=== PATIENT | male | born 1975 | race African-American/Black ===

== ENCOUNTER 2020-03-18 09:47 | Emergency (ER) | payer OTHER ==
--- OUTSIDE RECORDS SUMMARY | 2020-03-18 09:50 | XMS REPORT | Continuity of Care Document ---
:1975 Author Organization [facility] t Address [address] [place] [address] Care Team Providers Name Role Phone Unavailable Unavailable Unavailable Payers Payer Name Policy Type Policy Number Effective Date Expiration Date S ource Problems This patient has no known problems. Allergies, Adverse Reactions, Alerts Allergy Allergy Status Severity Reaction(s) Onset Inactive Treating Comm ents Source Name Type Date Date Clinician No Known DA [facility] Medications This patient has no known medications. Procedures This patient has no known procedures. Results Test Description Test Time Test Comments Results Result Comments Source SURG 2019-03-14 15:41:00 --------RUN DATE: 03/14/19 [facility] - LAB *LIVE* PAGE 1 RUN TIME: 1541 Specimen Inquiry RUN USER: INTERFACE --------PATIENT: ARNALDO CLEMENTS LOC: [place] U #: [id number] AGE/SX: 44/M ROOM: RE03/11/19[facility] DR: Lane Bob MD : 75 BED: DIS: STATUS: [facility] TLOC: -------- SPEC #: [id number] RECD: 03/11/19 STATUS: SOULinnea RE #: [id number] TRU: 03/11/[address] [facility] [address]: Lane Bob MD ENTERED: 03/11/19 SP TYPE: SURG OTHR DR: DOES_NOT KNOW ORDERED: SURG PATH LVL 2 COPIES TO: DOES_[place] [id number] [facility] [address] [place] [address] [email or web address] HISTOLOGY: TISSUE ID BLK PCS MARY LEV PROCEDURE DISPOSITION ____ ___ ___ ___ TESTIS, NOS A 1 1 PROCEDURES: SURG PATH LVL 2 (03/14/19-1223) TISSUES: A. TESTIS, NOS - LEFT HYDROCELE SAC CLINICAL HISTORY HYDROCELE -N43.3 CPT CODES CPT CODE(S): 32870 , , , , , , FINAL DIAGNOSIS Left hydrocele sac, hydrocelectomy: FINDINGS CONSISTENT WITH HYDROCELE GROSS DESCRIPTION Left hydrocele sac. Received in formalin is an irregular fragment of martinez-pink soft tissue, 9.0 x 5.8 x 0.5 cm. The surface, at one side, is glistening with attached red-brown membranous tissue. The specimen is serially sectioned and reveals dense martinez-pink fibrous tissue. No gross lesion is identified. Packaging Engineer sections submitted as A1 and A2. ba/nr Grossing performed at [facility] Pathology, [address] [place] [address], [address], [place], [place] [address]. Last Sorter: Fer Ohara M.D. CONTINUED ON NEXT PAGE --------RUN DATE: 03/14/19 [facility] - LAB *LIVE* PAGE 2 RUN TIME: 1541 Specimen Inquiry RUN USER: INTERFACE --------SPEC #: [facility]:[id number] PATIENT: ARNALDO CLEMENTS #[id number] (Continued) MICROSCOPIC DESCRIPTION Left hydrocele sac. Sections show a cystic structure with no epithelial lining. There is no evidence of atypia identified. No spermatozoa are present. No evidence of malignancy. /c Signed SIGNATURE ON FILE Johnie Saeedart 03/14/19 1541 -------- END OF REPORT
[2020-03-18] MEDS ORDERED: KETOROLAC 30 MG/ML INJ ONE (11:02)
--- NOTE | 2020-03-18 11:29 | ER ---
Nurse's Notes [facility] Name: Felix Pompa Age: 45 yrs Sex: Male : 1975 Arrival Date: 03/18/2020 Time: 09:49 Bed 18 Private MD: Diagnosis: Strain of muscle, fascia and tendon of lower back Presentation: 03/18 10:07 Chief complaint: Patient states: Attempting to lift a pallet on Thursday and felt a pop jl7 in the low back. Reports left low back pain, denies incontinence. Coronavirus screen: Proceed with normal triage. Ebola Screen: No symptoms or risks identified at this time. Initial Sepsis Screen: Does the patient meet any 2 criteria? No. Patient's initial sepsis screen is negative. Does the patient have a suspected source of infection? No. Patient's initial sepsis screen is negative. Risk Assessment: Do you want to hurt yourself or someone else? Patient reports no desire to harm self or others. Onset of symptoms was March 13, 2020. Care prior to arrival: None. 10:07 Method Of Arrival: Ambulatory jl7 10:07 Acuity: CHRISTOPHER 4 jl7 Triage Assessment: 10:12 General: Appears in no apparent distress. uncomfortable, Behavior is calm, cooperative, jl7 appropriate for age. Pain: Complains of pain in left low back Pain currently is 10 out of 10 on a pain scale. Pain began x 5 days Is continuous. Neuro: Level of Consciousness is awake, alert, obeys commands, Oriented to person, place, time, situation, Gait is steady. Cardiovascular: Patient's skin is warm and dry. Respiratory: Airway is patent Respiratory effort is even, unlabored, Respiratory pattern is regular, symmetrical. Derm: Skin is pink, warm \T\ dry. Musculoskeletal: Swelling absent. Historical: - Allergies: 10:12 uknown medication, possibly an antibiotic; jl7 - Home Meds: 10:12 uknown htn medication [Active]; jl7 - PMHx: 10:12 Hypertension; jl7 - PSHx: 10:12 Appendectomy; jl7 - Immunization history:: Adult Immunizations not up to date. - Social history:: Smoking status: Patient denies any tobacco usage or history of. - Family history:: not pertinent. - Hospitalizations: : No recent hospitalization is reported. Screenin:07 Abuse screen: Denies threats or abuse. Denies injuries from another. Nutritional jl7 screening: No deficits noted. Tuberculosis screening: No symptoms or risk factors identified. Fall Risk Gait- Impaired (20 pts.). Total Valero Fall Scale indicates No Risk (0-24 pts). Assessment: 10:15 General: See triage assessment. jl7 11:15 Reassessment: Patient appears in no apparent distress at this time. No changes from jl7 previously documented assessment. Patient and/or family updated on plan of care and expected duration. Pain level reassessed. Patient is alert, oriented x 3, equal unlabored respirations, skin warm/dry/pink. 11:36 Reassessment: reports pain 5/10 at this time Patient states feeling better. jl7 Vital Signs: 10:07 BP 164 / 99; Pulse 77; Resp 19; Temp 97.3; Pulse Ox 100% ; Weight 72.57 kg; Height 5 jl7 ft. 5 in. (165.10 cm); Pain 10/10; 11:07 BP 127 / 85; Pulse 70; Resp 15; Pulse Ox 98% ; jl7 10:07 Body Mass Index 26.63 (72.57 kg, 165.10 cm) jl7 ED Course: 09:49 Patient arrived in ED. ag5 10:01 Huang Merritt MD is Attending Physician. rn 10:07 Safia De La O, ALICE is Primary Nurse. jl7 10:10 Triage completed. jl7 10:12 Arm band placed on right wrist. jl7 10:52 XRAY Lumbar Spine (3 Views) In Process Unspecified. EDMS 11:07 Patient has correct armband on for positive identification. Bed in low position. Call jl7 light in reach. Side rails up X 1. Pulse ox on. NIBP on. 11:36 No provider procedures requiring assistance completed. Patient did not have IV access jl7 during this emergency room visit. Administered Medications: 11:06 Drug: TORadol 30 mg Route: IM; Site: right deltoid; jl7 11:36 Follow up: Response: No adverse reaction; Pain is decreased jl7 Outcome: 11:28 Discharge ordered by . rn 11:36 Discharged to home ambulatory. jl7 11:36 Condition: stable 11:36 Discharge instructions given to patient, Instructed on discharge instructions, follow up and referral plans. medication usage, Demonstrated understanding of instructions, follow-up care, medications, Prescriptions given X 2. 11:37 Patient left the ED. jl7 Signatures: Dispatcher [employer] EDHuang Mejia MD MD rn Leal, Jahala, RN RN jl7 Yifan Noriega ag5 Corrections: (The following items were deleted from the chart) 11:37 11:36 Discharge instructions given to patient, Instructed on discharge instructions, jl7 follow up and referral plans. medication usage, Demonstrated understanding of instructions, follow-up care, medications, Prescriptions given X 1, jl7
--- NOTE | 2020-03-18 11:29 | EDPHYS ---
Physician Documentation [facility] Name: Felix Pompa Age: 45 yrs Sex: Male : 1975 Arrival Date: 03/18/2020 Time: 09:49 Bed 18 Private MD: ED Physician Huang Merritt HPI: 03/18 10:07 This 45 yrs old Black Male presents to ER via Unassigned with complaints of Back Pain. rn 10:07 The patient presents with pain that is acute. The symptoms are located in the low back. rn Onset: The symptoms/episode began/occurred 5 day(s) ago. The pain does not radiate. Associated signs and symptoms: Pertinent positives: none Pertinent negatives: abdominal pain, chest pain, constipation, dysuria, fever, hematuria, incontinence, nausea, numbness, tingling, urinary retention, vomiting, weakness. Modifying factors: The patient symptoms are alleviated by remaining still, rest, the patient symptoms are aggravated by any movement. Severity of symptoms: At their worst the symptoms were mild, in the emergency department the symptoms are unchanged. The patient has experienced similar episodes in the past. Reports low back pain, left sided, after lifting empty pallet 5 days ago, no focal neurological symptoms, no fever, no direct trauma. No bowel/bladder issues. . Historical: - Allergies: 10:12 uknown medication, possibly an antibiotic; jl7 - Home Meds: 10:12 uknown htn medication [Active]; jl7 - PMHx: 10:12 Hypertension; jl7 - PSHx: 10:12 Appendectomy; jl7 - Immunization history:: Adult Immunizations not up to date. - Social history:: Smoking status: Patient denies any tobacco usage or history of. - Family history:: not pertinent. - Hospitalizations: : No recent hospitalization is reported. ROS: 10:07 Constitutional: Negative for fever, chills, and weight loss, Eyes: Negative for injury, rn pain, redness, and discharge, Cardiovascular: Negative for chest pain, palpitations, and edema, Respiratory: Negative for shortness of breath, cough, wheezing, and pleuritic chest pain, Abdomen/GI: Negative for abdominal pain, nausea, vomiting, diarrhea, and constipation, Back: + for injury and low back pain : Negative for injury, bleeding, discharge, and swelling, MS/Extremity: Negative for injury and deformity, Skin: Negative for injury, rash, and discoloration, Neuro: Negative for headache, weakness, numbness, tingling, and seizure. Exam: 10:07 Constitutional: This is a well developed, well nourished patient who is awake, alert, rn and in no acute distress. Back: No spinal tenderness. + left perispinal muscular tenderness Skin: Warm, dry with normal turgor. Normal color with no rashes, no lesions, and no evidence of cellulitis. MS/ Extremity: Pulses equal, no cyanosis. Neurovascular intact. Full, normal range of motion. Equal circumference. Neuro: Awake and alert, GCS 15, oriented to person, place, time, and situation. Cranial nerves II-XII grossly intact. Motor strength 5/5 in all extremities. Sensory grossly intact. Cerebellar exam normal. Normal gait. Vital Signs: 10:07 BP 164 / 99; Pulse 77; Resp 19; Temp 97.3; Pulse Ox 100% ; Weight 72.57 kg; Height 5 jl7 ft. 5 in. (165.10 cm); Pain 10; 11:07 BP 127 / 85; Pulse 70; Resp 15; Pulse Ox 98% ; jl7 10:07 Body Mass Index 26.63 (72.57 kg, 165.10 cm) jl7 MDM: 10:01 Patient medically screened. rn 11:27 Differential diagnosis: arthritis, chronic back pain, sprain, muscle strain. Data rn reviewed: vital signs, nurses notes, radiologic studies, plain films, and as a result, I will discharge patient. Test interpretation: by ED physician or midlevel provider: plain radiologic studies, Xray lumbar spine neg for acute fracture or pathology.. Counseling: I had a detailed discussion with the patient and/or guardian regarding: the historical points, exam findings, and any diagnostic results supporting the discharge/admit diagnosis, radiology results, the need for outpatient follow up, to return to the emergency department if symptoms worsen or persist or if there are any questions or concerns that arise at home. Response to treatment: the patient's symptoms have mildly improved after treatment, and as a result, I will discharge patient. Special discussion: I discussed with the patient/guardian in detail that at this point there is no indication for admission to the hospital. It is understood, however, that if the symptoms persist or worsen the patient needs to return immediately for re-evaluation. Further emergent ED testing is not indicated at this point in time. I discussed with the patient/guardian in detail the need to arrange with the PCP or specialist further outpatient testing, MRI. 03/18 10:07 Order name: XRAY Lumbar Spine (3 Views) rn Administered Medications: 11:06 Drug: TORadol 30 mg Route: IM; Site: right deltoid; jl7 11:36 Follow up: Response: No adverse reaction; Pain is decreased jl7 Disposition: 03/18/20 11:28 Discharged to Home. Impression: Strain of muscle, fascia and tendon of lower back. - Condition is Stable. - Discharge Instructions: Back Pain, Adult, Muscle Strain. - Prescriptions for Cyclobenzaprine 10 mg Oral Tablet - take 1 tablet by ORAL route every 8 hours As needed; 15 tablet. Medrol (Abel) 4 mg Oral Tablets, Dose Pack - take 1 tablet by ORAL route as directed - follow package instructions; 1 packet. - Medication Reconciliation Form, Thank You Letter, Antibiotic Education, Prescription Opioid Use form. - Follow up: Private Physician; When: As needed; Reason: Recheck today's complaints, Re-evaluation by your physician. - Problem is an acute exacerbation. - Symptoms have improved. Signatures: Dispatcher [employer] EDMS Huang Merritt MD MD rn Leal, Jahala, RN RN jl7 Corrections: (The following items were deleted from the chart) 11:37 11:28 03/18/2020 11:28 Discharged to Home. Impression: Strain of muscle, fascia and jl7 tendon of lower back. Condition is Stable. Discharge Instructions: Back Pain, Adult, Muscle Strain. Prescriptions for Cyclobenzaprine 10 mg Oral Tablet - take 1 tablet by ORAL route every 8 hours As needed; 15 tablet, Medrol (Aebl) 4 mg Oral Tablets, Dose Pack - take 1 tablet by ORAL route as directed - follow package instructions; 1 packet. and Forms are Medication Reconciliation Form, Thank You Letter, Antibiotic Education, Prescription Opioid Use. Follow up: Private Physician; When: As needed; Reason: Recheck today's complaints, Re-evaluation by your physician. Problem is an acute exacerbation. Symptoms have improved. rn
[2020-03-18 11:43] VITALS: TEMP 97.3
[2020-03-18 11:44] VITALS: BP 127/85; O2SAT 98
--- NOTE | 2020-03-18 11:54 | RAD REPORT ---
EXAM DESCRIPTION: RAD - Lumbar Spine 3 Views - 03/18/2020 10:56 am CLINICAL HISTORY: Back pain FINDINGS: The alignment of the lumbar spine is satisfactory. No fracture or dislocation is seen. Mild spondylosis involves the lumbar spine. Mild scoliosis
== END 2020-03-18 11:37 | disposition home or self-care (01) ==
LOC: ER 09:47
DX: S39.012A Strain of muscle, fascia and tendon of lower back, initial encounter (principal); I10 Essential (primary) hypertension
CPT/HCPCS: 72100; 96372; 99284

== ENCOUNTER 2020-05-04 03:05 | Emergency (ER) | payer OTHER ==
--- OUTSIDE RECORDS SUMMARY | 2020-05-04 03:08 | XMS REPORT | Continuity of Care Document ---
:1975 Author Organization [facility] t Address [address] [place] [address] Care Team Providers Name Role Phone Unavailable Unavailable Unavailable Payers Payer Name Policy Type Policy Number Effective Date Expiration Date S ource Problems This patient has no known problems. Allergies, Adverse Reactions, Alerts Allergy Allergy Status Severity Reaction(s) Onset Inactive Treating Comm ents Source Name Type Date Date Clinician No Known DA Active U [facility] All[facility]ie 03-09 [facility] 00:00: d 00 [facility] Medications This patient has no known medications. Procedures This patient has no known procedures. Results Test Description Test Time Test Comments Results Result Comments Source SURG 2019-03-14 15:41:00 --------RUN DATE: 03/14/19 [facility] - LAB *LIVE* PAGE 1 RUN TIME: 1541 Specimen Inquiry RUN USER: INTERFACE --------PATIENT: ARNALDO CLEMENTS LOC: [place] U #: [id number] AGE/SX: 44/M ROOM: RE03/11/19[facility] DR: Lane Bob MD : 75 BED: DIS: STATUS: [facility] TLOC: -------- SPEC #: [id number] RECD: 03/11/19 STATUS: SOULinnea REQ #: [id number] TRU: 03/11/[address] [facility] [address]: Lane Bob MD ENTERED: 03/11/19558 SP TYPE: SURG OTHR DR: DOES_NOT KNOW ORDERED: SURG PATH LVL 2 COPIES TO: DOES_[place] [id number] [facility] [facility] [address] [place], [place] [address] [email or web address] HISTOLOGY: TISSUE ID BLK PCS MARY LEV PROCEDURE DISPOSITION ____ ___ ___ ___ TESTIS, NOS A 1 1 PROCEDURES: SURG PATH LVL 2 (03/14/19-1223) TISSUES: A. TESTIS, NOS - LEFT HYDROCELE SAC CLINICAL HISTORY HYDROCELE -N43.3 CPT CODES CPT CODE(S): 85908 , , , , , , FINAL [...] fibrous tissue. No gross lesion is identified. Aviation Project Manager sections submitted as A1 and A2. ba/nr Grossing performed at [facility] Pathology, [address] [place] [address], [address], [place], [place] [address]. Advisory Application Developer: Fer Ohara M.D. CONTINUED ON NEXT PAGE --------RUN DATE: 03/14/19 [facility] - LAB *LIVE* PAGE 2 RUN TIME: 1541 Specimen Inquiry RUN USER: INTERFACE --------SPEC #: [facility]:[id number] PATIENT: ARNALDO CLEMENTS #[id number] (Continued) MICROSCOPIC DESCRIPTION Left hydrocele sac. Sections show a cystic structure with no epithelial lining. There is no evidence of atypia identified. No spermatozoa are present. No evidence of malignancy. /c Signed SIGNATURE ON Swapna Dennis 03/14/19 1541 -------- END OF REPORT
[2020-05-04] MEDS ORDERED: ONDANSETRON 4 MG/2 ML VIAL ONE (03:40)
[2020-05-04] MEDS ORDERED: NA CHLORIDE 0.9% 1,000 ML ONE (03:40)
[2020-05-04] MEDS ORDERED: MORPHINE 4 MG/ML SYR ONE (03:40)
[2020-05-04 03:48] LABS: Absolute Lymphocytes (CBC) 2.5 K/uL (0.7-4.9); Basophils % 0.5 % (0-1.3); Hematocrit 40.1 % (39.6-49.0); Lymphocytes % 41.8 % (15.3-44.8); MPV 8.5 fL (7.6-11.3); RBC Red Blood Cell Count 4.73 M/uL (4.33-5.43)
[2020-05-04 04:05] LABS: ALT/SGPT 52 U/L (12-78); AST/SGOT 25 U/L (15-37); Albumin 3.7 g/dL (3.4-5.0); Alkaline Phosphatase 48 U/L (45-117); BUN Blood Urea Nitrogen 12 mg/dL (7-18); Bicarbonate 28 mmol/L (21-32); Bilirubin Direct < 0.1 mg/dL (0-0.2); Bilirubin Total 0.3 mg/dL (0.2-1.0); Glucose Level 145 mg/dL (74-106); Lipase 71 U/L (73-393); Potassium 3.2 mmol/L (3.5-5.1); Protein, Total 7.4 g/dL (6.4-8.2); Sodium Level 143 mmol/L (136-145)
[2020-05-04] MEDS ORDERED: MEPERIDINE HCL 50 MG/ML ONE (04:19)
[2020-05-04] MEDS ORDERED: POTASSIUM CL SA 10 MEQ TAB PO ONE (04:34)
--- NOTE | 2020-05-04 04:34 | EDPHYS ---
Physician Documentation [facility] Name: Felix Pompa Age: 45 yrs Sex: Male : 1975 Arrival Date: 05/04/2020 Time: 03:09 Bed 7 Private MD: ED Physician Alex Sheldon HPI: 05/04 03:26 This 45 yrs old Black Male presents to ER via Ambulatory with complaints of Flank Pain. pkl 03:26 The patient presents with abdominal pain right lower quadrant. Onset: The pkl symptoms/episode began/occurred suddenly, 1 hour(s) ago. The symptoms do not radiate. Associated signs and symptoms: Pertinent positives: nausea and vomiting. The patient has not experienced similar symptoms in the past. Historical: - Allergies: 03:19 uknown medication, possibly an antibiotic; rv - PMHx: 03:19 Hypertension; rv - PSHx: 03:19 Appendectomy; rv - Immunization history:: Adult Immunizations not immunized. - Social history:: Smoking status: Patient denies any tobacco usage or history of. ROS: 03:26 Eyes: Negative for injury, pain, redness, and discharge, ENT: Negative for injury, pkl pain, and discharge, Neck: Negative for injury, pain, and swelling, Cardiovascular: Negative for chest pain, palpitations, and edema, Respiratory: Negative for shortness of breath, cough, wheezing, and pleuritic chest pain, Back: Negative for injury and pain, : Negative for injury, bleeding, discharge, and swelling, MS/Extremity: Negative for injury and deformity. 03:26 Abdomen/GI: Positive for abdominal pain, of the right lower quadrant. 03:26 MS/extremity: Negative for acute changes. 03:26 Skin: Negative for rash. 03:26 Neuro: Negative for altered mental status. Exam: 03:26 Head/Face: Normocephalic, atraumatic. Eyes: Pupils equal round and reactive to light, pkl extra-ocular motions intact. Lids and lashes normal. Conjunctiva and sclera are non-icteric and not injected. Cornea within normal limits. Periorbital areas with no swelling, redness, or edema. ENT: Nares patent. No nasal discharge, no septal abnormalities noted. Tympanic membranes are normal and external auditory canals are clear. Oropharynx with no redness, swelling, or masses, exudates, or evidence of obstruction, uvula midline. Mucous membranes moist. Neck: Trachea midline, no thyromegaly or masses palpated, and no cervical lymphadenopathy. Supple, full range of motion without nuchal rigidity, or vertebral point tenderness. No Meningismus. Chest/axilla: Normal chest wall appearance and motion. Nontender with no deformity. No lesions are appreciated. Cardiovascular: Regular rate and rhythm with a normal S1 and S2. No gallops, murmurs, or rubs. Normal PMI, no JVD. No pulse deficits. Respiratory: Lungs have equal breath sounds bilaterally, clear to auscultation and percussion. No rales, rhonchi or wheezes noted. No increased work of breathing, no retractions or nasal flaring. 03:26 Abdomen/GI: Bowel sounds: normal, Palpation: soft, in the right lower quadrant, moderate abdominal tenderness. 03:26 Back: Exam negative for acute changes. 03:26 : Exam negative for acute changes. 03:26 Musculoskeletal/extremity: Exam is negative for acute changes. 03:26 Skin: Exam negative for rash. 03:26 Neuro: Orientation: is normal, Mentation: is normal, Cranial nerves: grossly normal, Motor: is normal. Vital Signs: 03:18 BP 134 / 89; Pulse 71; Resp 17; Temp 97.7; Pulse Ox 100% ; Weight 72.57 kg; Height 5 rv ft. 5 in. (165.10 cm); Pain 10/10; 04:15 BP 145 / 86; Pulse 75; Resp 16; Pulse Ox 99% ; Pain 10/10; rr5 04:34 BP 136 / 90; Pulse 70; Resp 17; Pulse Ox 100% ; rr5 04:47 BP 131 / 84; Pulse 69; Resp 16; Pulse Ox 99% ; rr5 03:18 Body Mass Index 26.63 (72.57 kg, 165.10 cm) rv MDM: 03:15 Patient medically screened. pkl 04:30 Data reviewed: vital signs, nurses notes, lab test result(s), radiologic studies, CT pkl scan. ED course: Patient feeling better. Discussed lab. and CT Scan results with patient Advised to follow with Urologist in 2 to 3 days. Return if necessary. Patient understood instructions. 05/04 03:31 Order name: Basic Metabolic Panel; Complete Time: 04:21 pkl 08/14 03:31 Order name: CBC with Diff; Complete Time: 03:55 pkl 05/04 03:31 Order name: Hepatic Function; Complete Time: 04:21 pkl 05/04 03:31 Order name: Lipase; Complete Time: 04:21 pkl 05/04 03:32 Order name: CT Abd/Pelvis - IV Contrast Only pkl 05/04 03:55 Order name: CREATININE WHOLE BLOOD; Complete Time: 03:58 EDMS 05/04 03:31 Order name: IV Saline Lock; Complete Time: 03:35 pkl 05/04 03:31 Order name: Labs collected and sent; Complete Time: 03:35 pkl Administered Medications: 03:30 Drug: NS 0.9% 1000 ml Route: IV; Rate: 1000 ml; Site: right antecubital; rr5 04:25 Follow up: Response: No adverse reaction; IV Status: Completed infusion; IV Intake: rr5 1000ml 03:30 Drug: Zofran (Ondansetron) 4 mg Route: IVP; Site: right antecubital; rr5 04:30 Follow up: Response: No adverse reaction rr5 03:32 Drug: morphine 4 mg {Note: rass 0.} Route: IVP; Site: right antecubital; rr5 04:20 Follow up: Response: No adverse reaction; Pain is unchanged, physician notified; RASS: rr5 Alert and Calm (0) 04:10 Drug: Demerol 50 mg {Note: rass 0.} Route: IVP; Site: right antecubital; rr5 04:36 Follow up: Response: No adverse reaction ea 04:26 Drug: K-Dur 40 mEq Route: PO; rr5 04:36 Follow up: Response: No adverse reaction ea Disposition: 05/04/20 04:34 Discharged to Home. Impression: 2.5 mm calculus at right UVJ. No hydronephrosis. - Condition is Stable. - Prescriptions for Tylenol- Codeine #3 300-30 mg Oral Tablet - take 2 tablet by ORAL route every 6 hours As needed; 30 tablet. Flomax 0.4 mg Oral Capsule, Sust. Release 24 hr - take 1 capsule by ORAL route once daily 1/2 hour following the same meal each day; 15 capsule. - Medication Reconciliation Form, Thank You Letter, Antibiotic Education, Prescription Opioid Use form. - Follow up: Koffi Molina MD; When: 2 - 3 days; Reason: Re-evaluation by your physician. - Problem is new. - Symptoms have improved. Signatures: Dispatcher [employer] EDMS Alex Sheldon MD MD pkl Tai Schmidt RN RN rv Jorgito Bae RN RN rr5 Faviola James RN, ea Corrections: (The following items were deleted from the chart) 04:49 04:34 05/04/2020 04:34 Discharged to Home. Impression: 2.5 mm calculus at right UVJ. No rr5 hydronephrosis. Condition is Stable. Forms are Medication Reconciliation Form, Thank You Letter, Antibiotic Education, Prescription Opioid Use. Follow up: Koffi Molina; When: 2 - 3 days; Reason: Re-evaluation by your physician. Problem is new. Symptoms have improved. pkl
--- NOTE | 2020-05-04 04:34 | ER ---
Nurse's Notes [facility] Name: Felix Pompa Age: 45 yrs Sex: Male : 1975 Arrival Date: 05/04/2020 Time: 03:09 Bed 7 Private MD: Diagnosis: 2.5 mm calculus at right UVJ. No hydronephrosis Presentation: 05/04 03:18 Chief complaint: Patient states: SUDDEN ONSET OF PAIN, 10/10 NUMBING PAIN ON THE RLQ rv ABDOMEN. NAUSEA WITH VOMITING. NORMAL BM. DENIES FEVER. Coronavirus screen: Client denies travel out of the [place] in the last 14 days. Ebola Screen: No symptoms or risks identified at this time. Initial Sepsis Screen: Does the patient meet any 2 criteria? No. Patient's initial sepsis screen is negative. Does the patient have a suspected source of infection? No. Patient's initial sepsis screen is negative. Risk Assessment: Do you want to hurt yourself or someone else? Patient reports no desire to harm self or others. Onset of symptoms was May 04, 2020 at 02:30. 03:18 Method Of Arrival: Ambulatory rv 03:18 Acuity: CHRISTOPHER 3 rv Triage Assessment: 03:19 General: Appears uncomfortable, ill, Behavior is calm, cooperative. Pain: Complains of rv pain in right lower quadrant Pain currently is 10 out of 10 on a pain scale. Pain began suddenly. EENT: No signs and/or symptoms were reported regarding the EENT system. Neuro: Level of Consciousness is awake, alert, obeys commands, Oriented to person, place, time, situation. Cardiovascular: Patient's skin is warm and dry. Rhythm is regular. Respiratory: Airway is patent Respiratory effort is even, unlabored. GI: Abdomen is flat, non-distended. Derm: Skin is intact. Historical: - Allergies: 03:19 uknown medication, possibly an antibiotic; rv - PMHx: 03:19 Hypertension; rv - PSHx: 03:19 Appendectomy; rv - Immunization history:: Adult Immunizations not immunized. - Social history:: Smoking status: Patient denies any tobacco usage or history of. Screenin:21 Abuse screen: Denies threats or abuse. Denies injuries from another. Nutritional rv screening: No deficits noted. Tuberculosis screening: No symptoms or risk factors identified. Fall Risk None identified. Assessment: 03:50 General: Appears in no apparent distress. uncomfortable, ill, Behavior is calm, rr5 cooperative, appropriate for age. 03:50 Pain: Complains of pain in right lower quadrant Pain radiates to pelvis Pain currently rr5 is 10 out of 10 on a pain scale. Quality of pain is described as aching, Pain began suddenly, Is continuous. Neuro: Level of Consciousness is awake, alert, obeys commands, Oriented to person, place, time, situation. Cardiovascular: Capillary refill < 3 seconds Patient's skin is warm and dry. Respiratory: Airway is patent Respiratory effort is even, unlabored, Respiratory pattern is regular, symmetrical. GI: Abdomen is round Abdomen is tender to palpation X 4 quads. Reports lower abdominal pain. : No signs and/or symptoms were reported regarding the genitourinary system. EENT: No signs and/or symptoms were reported regarding the EENT system. Derm: Skin is intact, is healthy with good turgor, Skin temperature is warm. Musculoskeletal: Circulation, motion, and sensation intact. Capillary refill < 3 seconds. 04:15 Reassessment: Patient appears in no apparent distress at this time. came back from CT rr5 scan.ED provider aware with order made and carried out Patient states symptoms have not improved. 04:48 Reassessment: Patient appears in no apparent distress at this time. Patient is alert, rr5 oriented x 3, equal unlabored respirations, skin warm/dry/pink. discharge instruction given and explained without complaints made Patient states symptoms have improved. Vital Signs: 03:18 BP 134 / 89; Pulse 71; Resp 17; Temp 97.7; Pulse Ox 100% ; Weight 72.57 kg; Height 5 rv ft. 5 in. (165.10 cm); Pain 10/10; 04:15 BP 145 / 86; Pulse 75; Resp 16; Pulse Ox 99% ; Pain 10/10; rr5 04:34 BP 136 / 90; Pulse 70; Resp 17; Pulse Ox 100% ; rr5 04:47 BP 131 / 84; Pulse 69; Resp 16; Pulse Ox 99% ; rr5 03:18 Body Mass Index 26.63 (72.57 kg, 165.10 cm) rv ED Course: 03:09 Patient arrived in ED. es 03:14 Alex Sheldon MD is Attending Physician. pkl 03:19 Triage completed. rv 03:20 Arm band placed on Patient placed in the treatment room, on a stretcher, Patient rv notified of wait time. 03:21 Patient has correct armband on for positive identification. Pulse ox on. NIBP on. rv 03:30 Inserted saline lock: 20 gauge in right antecubital area, using aseptic technique. rr5 Blood collected. 03:35 Jorgito Bae RN is Primary Nurse. rr5 04:09 CT Abd/Pelvis - IV Contrast Only In Process Unspecified. EDMS 04:32 Koffi Molina MD is Referral Physician. pkl 04:48 No provider procedures requiring assistance completed. IV discontinued, intact, rr5 bleeding controlled, No redness/swelling at site. Pressure dressing applied. Administered Medications: 03:30 Drug: NS 0.9% 1000 ml Route: IV; Rate: 1000 ml; Site: right antecubital; rr5 04:25 Follow up: Response: No adverse reaction; IV Status: Completed infusion; IV Intake: rr5 1000ml 03:30 Drug: Zofran (Ondansetron) 4 mg Route: IVP; Site: right antecubital; rr5 04:30 Follow up: Response: No adverse reaction rr5 03:32 Drug: morphine 4 mg {Note: rass 0.} Route: IVP; Site: right antecubital; rr5 04:20 Follow up: Response: No adverse reaction; Pain is unchanged, physician notified; RASS: rr5 Alert and Calm (0) 04:10 Drug: Demerol 50 mg {Note: rass 0.} Route: IVP; Site: right antecubital; rr5 04:36 Follow up: Response: No adverse reaction ea 04:26 Drug: K-Dur 40 mEq Route: PO; rr5 04:36 Follow up: Response: No adverse reaction ea Intake: 04:25 IV: 1000ml; Total: 1000ml. rr5 Outcome: 04:34 Discharge ordered by . pkl 04:48 Discharged to home via wheelchair. rr5 04:48 Condition: stable 04:48 Discharge instructions given to patient, Instructed on discharge instructions, follow up and referral plans. medication usage, Demonstrated understanding of instructions, follow-up care, medications, Prescriptions given X 2. 04:49 Patient left the ED. rr5 Signatures: Dispatcher [employer] Alex Hi MD MD pkl Salyer, Edna es Antunez, Elena RN RN Tai Bardales RN RN Jorgito Shields RN RN rr5
[2020-05-04 04:56] VITALS: TEMP 97.7
[2020-05-04 04:59] VITALS: BP 131/84; O2SAT 99
--- NOTE | 2020-05-04 08:32 | RAD REPORT ---
EXAM DESCRIPTION: CT - Abdomen Pelvis W Contrast - 05/04/2020 4:39 am CLINICAL HISTORY: The patient is 45 years old and is Male; ABD PAIN TECHNIQUE: Axial computed tomography images of the abdomen and pelvis with intravenous contrast. S agittal and coronal reformatted images were created and reviewed. This CT exam was performed using one or more of the following dose reduction techniques: automated exposure control, adjustment of t he mA and/or kV according to patient size, and/or use of iterative reconstruction technique. COMPARISON: No relevant prior studies available. FINDINGS: Lung bases: Unremarkable. No mass. No consolidation. Heart: Mild cardiomegaly. ABDOMEN: Liver: Marked fatty infiltration of the liver. Mild hepatomegaly. Gallbladder and bile ducts: Unremarkable. No calcified stones. No ductal dilation. Pancreas: No findings to suggest acute pancreatitis. No mass visualized. No ductal dilation. Spleen: Unremarkable. No splenomegaly. Adrenals: Unremarkable. No mass. Kidneys and ureters: 2.5 mm calculus at the right UVJ. No hydronephrosis. 4.8 cm right renal simple cyst. No follow-up imaging required. No solid renal lesion. No left ureter stone. Stomach and bowel: Colonic diverticulosis. No small bowel dilatation or obstruction. Stomach is unremarkable. No mucosal thickening. PELVIS: Appendix: The visualized appendix is normal. No pericecal inflammation to suggest acute appendic itis. Bladder: Unremarkable. No mass. Reproductive: Enlarged prostate gland. ABDOMEN and PELVIS: Intraperitoneal space: Unremarkable. No free air. No significant fluid collection. Bones/joints: Shallow disc protrusions at L4-5 and L5-S1. No acute fracture. Mild scoliosis. No dislocation. Soft tissues: Incompletely visualized right scrotal hernia containing fat. No evidence of edema/ incarceration. Vasculature: Unremarkable. No abdominal aortic aneurysm. Lymph nodes: No pathologically enlarged lymph nodes. IMPRESSION: 1. 2.5 mm calculus at the right UVJ. No hydronephrosis. 2. Marked fatty infiltration of the liver. Mild hepatomegaly. 3. Colonic diverticulosis. 4. Incompletely visualized right scrotal hernia containing fat. No evidence of edema/incarceration. 5. Enlarged prostate gland. 6. Additional non-emergent findings as above. Electronically signed by: Ailyn Paul MD 05/04/2020 4:21 AM CDT Due to temporary technical issues with the PACS/Fluency reporting system, reports are being signed by the in house radiologist without review as a courtesy to ensure prompt reporting. The interpreting r adiologist is fully responsible for the content of the report.
== END 2020-05-04 04:49 | disposition home or self-care (01) ==
LOC: ER 03:05
DX: N20.1 Calculus of ureter (principal)
CPT/HCPCS: 96361; 85025; 80048; 36415; 82565; 80076; 83690; 74177; 96375; 96374; 99284; Q9967; J2175; J7030; J2405

== ENCOUNTER 2021-01-23 19:44 | Emergency (ER) | payer OTHER ==
--- OUTSIDE RECORDS SUMMARY | 2021-01-23 19:46 | XMS REPORT | Continuity of Care Document ---
:1975 Author Organization [facility] t Address [address] [place] [address] Care Team Providers Name Role Phone Unavailable Unavailable Unavailable Payers Payer Name Policy Type Policy Number Effective Date Expiration Date S ource Problems This patient has no known problems. Allergies, Adverse Reactions, Alerts Allergy Allergy Status Severity Reaction(s) Onset Inactive Treating Comm ents Source Name Type Date Date Clinician No Known DA Active [facility] Allergie 03-09 [facility] s 00:00: d 00 [facility] Medications This patient has no known medications. Procedures This patient has no known procedures. Results Test Description Test Time Test Comments Results Result Comments Source SURG 2019-03-14 15:41:00 --------RUN DATE: 03/14/19 [facility] - LAB *LIVE* PAGE 1 RUN TIME: 1541 Specimen Inquiry RUN USER: INTERFACE --------PATIENT: ARNALDO CLEMENTS LOC: [place] U #: [id number] AGE/SX: 44/M ROOM: RE03/11/19[facility] DR: Lane Bob MD : 75 BED: DIS: STATUS: DEP [facility] TLOC: -------- SPEC #: [id number] RECD: 03/11/19 STATUS: SOULinnea REQ #: [id number] TRU: 03/11/19 [facility] DR: Lane Bob MD ENTERED: 03/11/19 SP TYPE: SURG OTHR DR: DOES_NOT KNOW ORDERED: SURG PATH LVL 2 COPIES TO: DO[place] [id number] [facility] [address] [place] [address] [email or web address] HISTOLOGY: TISSUE ID BLK PCS MARY LEV PROCEDURE DISPOSITION ____ ___ ___ ___ TESTIS, NOS A 1 1 PROCEDURES: SURG PATH LVL 2 (03/14/19-1223) TISSUES: A. TESTIS, NOS - LEFT HYDROCELE SAC CLINICAL HISTORY HYDROCELE -N43.3 CPT CODES CPT CODE(S): 89453 , , , , , , FINAL [...] fibrous tissue. No gross lesion is identified. Quality Assurance Tester sections submitted as A1 and A2. ba/nr Grossing performed at [facility] Pathology, [address] [place] [address], [address], [place], [place] [address]. Train Master: Fer Ohara M.D. CONTINUED ON NEXT PAGE --------RUN DATE: 03/14/19 [facility] - LAB *LIVE* PAGE 2 RUN TIME: 1541 Specimen Inquiry RUN USER: INTERFACE --------SPEC #: [facility]:[id number] PATIENT: ARNALDO CLEMENTS #[id number] (Continued) MICROSCOPIC DESCRIPTION Left hydrocele sac. Sections show a cystic structure with no epithelial lining. There is no evidence of atypia identified. No spermatozoa are present. No evidence of malignancy. /c Signed SIGNATURE ON FILE DeepthiSwapna Gunter 03/14/19 1541 -------- END OF REPORT
--- NOTE | 2021-01-23 22:59 | EDPHYS ---
Physician Documentation [facility] Name: Felix Pompa Age: 45 yrs Sex: Male : 1975 Arrival Date: 01/23/2021 Time: 19:57 Bed 12 Private MD: ED Physician Onur Belle HPI: 01/23 22:56 This 45 yrs old Black Male presents to ER via Ambulatory with complaints of Back Pain. ma2 22:56 The patient presents with pain that is acute. The symptoms are located in the low back. ma2 Onset: The symptoms/episode began/occurred gradually, 1 day(s) ago. The problem was sustained when bending over, when lifting. Severity of symptoms: At their worst the symptoms were mild, in the emergency department the symptoms are unchanged. The patient has experienced similar episodes in the past. no redflags such as saddle anasthesia, severe pain, trauma, midline tenderness or fever or urinary incont.. Historical: - Allergies: 20:38 uknown medication, possibly an antibiotic; ca1 - PMHx: 20:38 Hypertension; ca1 - PSHx: 20:38 Appendectomy; ca1 - Immunization history:: Client reports receiving the 2nd dose of the Covid vaccine, Client reports receiving the 1st dose of the Covid vaccine. - Social history:: Smoking status: Patient denies any tobacco usage or history of. Patient/guardian denies using alcohol, street drugs, The patient lives with family. - Family history:: not pertinent. ROS: 22:56 Constitutional: Negative for fever, chills, and weight loss. ma2 22:56 All other systems are negative. Exam: 22:56 Constitutional: This is a well developed, well nourished patient who is awake, alert, ma2 and in no acute distress. Neck: Trachea midline, no thyromegaly or masses palpated, and no cervical lymphadenopathy. Supple, full range of motion without nuchal rigidity, or vertebral point tenderness. No Meningismus. Chest/axilla: Normal chest wall appearance and motion. Nontender with no deformity. No lesions are appreciated. Cardiovascular: Regular rate and rhythm with a normal S1 and S2. No gallops, murmurs, or rubs. Normal PMI, no JVD. No pulse deficits. Respiratory: Lungs have equal breath sounds bilaterally, clear to auscultation and percussion. No rales, rhonchi or wheezes noted. No increased work of breathing, no retractions or nasal flaring. Abdomen/GI: Soft, non-tender, with normal bowel sounds. No distension or tympany. No guarding or rebound. No evidence of tenderness throughout. Skin: Warm, dry with normal turgor. Normal color with no rashes, no lesions, and no evidence of cellulitis. MS/ Extremity: Pulses equal, no cyanosis. Neurovascular intact. Full, normal range of motion. Neuro: Awake and alert, GCS 15, oriented to person, place, time, and situation. Cranial nerves II-XII grossly intact. Motor strength 5/5 in all extremities. Sensory grossly intact. Cerebellar exam normal. Normal gait. 22:56 Back: pain, that is very mild, ROM is normal, normal spinal alignment noted, CVA tenderness, is absent, vertebral tenderness, is not appreciated, muscle spasm, is appreciated in the low back area and right low back. Vital Signs: 20:36 BP 146 / 94; Pulse 88; Resp 16 S; Temp 97.4(TE); Pulse Ox 98% on R/A; Weight 68.04 kg ca1 (R); Height 5 ft. 5 in. (165.10 cm) (R); Pain 10/10; 20:36 Body Mass Index 24.96 (68.04 kg, 165.10 cm) ca1 MDM: 22:42 Patient medically screened. ma2 22:56 Differential diagnosis: arthritis, Fatigue Ligament Injury sprain. Data reviewed: vital ma2 signs, nurses notes. Counseling: I had a detailed discussion with the patient and/or guardian regarding: the historical points, exam findings, and any diagnostic results supporting the discharge/admit diagnosis, the presence of at least one elevated blood pressure reading (>120/80) during this emergency department visit, the need for outpatient follow up. Response to treatment: the patient's symptoms have markedly improved after treatment. Administered Medications: 23:20 Drug: TORadol (ketorolac) 60 mg Route: IM; Site: right ventrogluteal; iw 23:30 Follow up: Response: No adverse reaction iw Disposition: 01/23/21 22:59 Discharged to Home. Impression: Low back pain. - Condition is Stable. - Discharge Instructions: Back Pain, Adult. - Prescriptions for Cyclobenzaprine 10 mg Oral Tablet - take 1 tablet by ORAL route every 8 hours As needed; 30 tablet. Diclofenac Sodium 75 mg Oral Tablet Sustained Release - take 1 tablet by ORAL route 2 times per day; 30 tablet. - Medication Reconciliation Form, Thank You Letter, Antibiotic Education, Prescription Opioid Use form. - Follow up: Private Physician; When: Tomorrow; Reason: If symptoms return. - Notes: follow up wtih your pcp for MRI Signatures: Sravani Mancini RN RN iw Onur Belle MD MD ma2 Amberly Castaneda RN RN ca1 Corrections: (The following items were deleted from the chart) 23:21 22:59 01/23/2021 22:59 Discharged to Home. Impression: Low back pain. Condition is iw Stable. Prescriptions for Cyclobenzaprine 10 mg Oral Tablet - take 1 tablet by ORAL route every 8 hours As needed; 30 tablet, Diclofenac Sodium 75 mg Oral Tablet Sustained Release - take 1 tablet by ORAL route 2 times per day; 30 tablet. and Forms are Medication Reconciliation Form, Thank You Letter, Antibiotic Education, Prescription Opioid Use. Follow up: Private Physician; When: Tomorrow; Reason: If symptoms return. ma2
--- NOTE | 2021-01-23 22:59 | ER ---
Nurse's Notes [facility] Name: Felix Pompa Age: 45 yrs Sex: Male : 1975 Arrival Date: 01/23/2021 Time: 19:57 Bed 12 Private MD: Diagnosis: Low back pain Presentation: 01/23 20:36 Chief complaint: Patient states: Was changing big tire yesterday. Woke with pain on mid ca1 back. I pulled a muscle last year on the same spot and I feel like pulled that same muscle again this time. Coronavirus screen: Client denies travel out of the [place] in the last 14 days. At this time, the client does not indicate any symptoms associated with coronavirus-19. Ebola Screen: Patient negative for fever greater than or equal to 101.5 degrees Fahrenheit, and additional compatible Ebola Virus Disease symptoms Patient denies exposure to infectious person. Patient denies travel to an Ebola-affected area in the 21 days before illness onset. No symptoms or risks identified at this time. Initial Sepsis Screen: Does the patient meet any 2 criteria? No. Patient's initial sepsis screen is negative. Does the patient have a suspected source of infection? No. Patient's initial sepsis screen is negative. Risk Assessment: Do you want to hurt yourself or someone else? Patient reports no desire to harm self or others. Onset of symptoms was January 23, 2021. 20:36 Method Of Arrival: Ambulatory ca1 20:36 Acuity: CHRISTOPHER 4 ca1 Triage Assessment: 22:40 General: Appears in no apparent distress. General: Appears Behavior is calm, iw cooperative. Musculoskeletal: Range of motion: intact in all extremities. Historical: - Allergies: 20:38 uknown medication, possibly an antibiotic; ca1 - PMHx: 20:38 Hypertension; ca1 - PSHx: 20:38 Appendectomy; ca1 - Immunization history:: Client reports receiving the 2nd dose of the Covid vaccine, Client reports receiving the 1st dose of the Covid vaccine. - Social history:: Smoking status: Patient denies any tobacco usage or history of. Patient/guardian denies using alcohol, street drugs, The patient lives with family. - Family history:: not pertinent. Screenin:40 Abuse screen: Denies threats or abuse. Denies injuries from another. Nutritional iw screening: No deficits noted. Tuberculosis screening: No symptoms or risk factors identified. Fall Risk None identified. Assessment: 22:40 General: Appears in no apparent distress. comfortable, Behavior is calm, cooperative. iw Pain: Complains of pain in right low back and low back area. Neuro: Level of Consciousness is awake, alert, obeys commands, Oriented to person, place, time, situation, Moves all extremities. Full function. Cardiovascular: Patient's skin is warm and dry. Respiratory: Respiratory effort is even, unlabored, Respiratory pattern is regular, symmetrical. Derm: Skin is intact, is healthy with good turgor. Musculoskeletal: Range of motion: intact in all extremities, Reports pain in low back area and right low back. Vital Signs: 20:36 BP 146 / 94; Pulse 88; Resp 16 S; Temp 97.4(TE); Pulse Ox 98% on R/A; Weight 68.04 kg ca1 (R); Height 5 ft. 5 in. (165.10 cm) (R); Pain 10/10; 20:36 Body Mass Index 24.96 (68.04 kg, 165.10 cm) ca1 ED Course: 19:57 Patient arrived in ED. am4 20:38 Triage completed. ca1 20:38 Arm band placed on right wrist. ca1 22:26 Sravani Mancini RN is Primary Nurse. iw 22:40 Patient has correct armband on for positive identification. iw 22:42 nOur Belle MD is Attending Physician. ma2 23:20 No provider procedures requiring assistance completed. Patient did not have IV access iw during this emergency room visit. Administered Medications: 23:20 Drug: TORadol (ketorolac) 60 mg Route: IM; Site: right ventrogluteal; iw 23:30 Follow up: Response: No adverse reaction iw Outcome: 22:59 Discharge ordered by . ma2 23:20 Discharged to home ambulatory. iw 23:20 Condition: good 23:20 Discharge instructions given to patient, Instructed on discharge instructions, follow up and referral plans. medication usage, Demonstrated understanding of instructions, follow-up care, medications, Prescriptions given X 2. 23:21 Patient left the ED. iw Signatures: Sravani Mancini RN RN iw Onur Belle MD MD ma2 Amberly Castaneda RN RN ca1 Yulia Raymond am4
[2021-01-23 23:29] VITALS: BP 146/94; TEMP 97.4; O2SAT 98
[2021-01-23] MEDS ORDERED: KETOROLAC 30 MG/ML INJ ONE (23:36)
== END 2021-01-23 23:21 | disposition home or self-care (01) ==
LOC: ER 19:44
DX: M54.5 Low back pain (principal); I10 Essential (primary) hypertension
CPT/HCPCS: 96372; 99283

== ENCOUNTER 2025-02-08 16:17 | Emergency (ER) | payer OTHER ==
--- OUTSIDE RECORDS SUMMARY | 2025-02-08 16:22 | XMS REPORT | Continuity of Care Document ---
Author Name Unknown Address [address] [facility] [address] [place] [address] Organization [facility] [place] Address [address] [facility] [address] [place] [address] Care Team Providers Care Red Cap Name Role Phone Lionel Flood Primary Care Physician [phone] MARZENA REED Attending Clinician Unavailable MARZENA REED Attending Clinician Unavailable LIONEL HART Attending Clinician Unavailable Lionel Flood Attending Clinician [phone] ELIZABETH CHACKO Attending Clinician Unavailable Mana Shepard PA-C Attending Clinician [phone] MANA SHEPARD Attending Clinician Unavailable MANA SHEPARD Attending Clinician Unavailable Lab, Ang - Db Attending Clinician Unavailable Lionel Flood Attending Clinician [phone] Lab, Ang - Db Attending Clinician Unavailable Doctor Unassigned, [place] Attending Clinician Rut Barraza RN, Terrance Attending Clinician Unavailab le Only, Ang Db Test Attending Clinician UnavailMonroe Thrasher Attending Clinician [phone] MONROE RUIZ Attending Clinician Unavailabl ANGEL Rivera Attending Clinician Unavailable Angel Ruiz MD Attending Clinician MIS MCCLENDON Attending Clinician Unavailable MIS MCCLENDON Attending Clinician Unavailable Melvin REYNA Gladis Attending Clinician [phone] Pob, [facility] Main Attending Clinician UnavailEbony Barnes MD Attending Clinician [phone] EBONY KURTZ Attending Clinician Unavailable ALEJANDRO JACOBSON Attending Clinician Unavailable Nilson Cooley Attending Clinician [phone] Emmy Glover MD Attending Clinician [phone] EMMY GLOVER Attending Clinician UnavailBRANDEE Ernst Attending Clinician Unavailable Brandee Sadler Attending Clinician [phone] MARZENA REED Admitting Clinician Unavailable ANGEL RUIZ Admitting Clinician Unavailable Payers Payer Name Policy Type Policy Number Effective Date Expirati on Date Source [employer] II [id number] 2015 00:00:00 Problems Condition Name Condition Details Condition Category Status Onset Date Resolution Date Last Treatment Date Treating Clinician Comments Source Sebaceous cyst of finger of right hand Sebaceous cyst of finger of right hand Disease Active 3-17 00:00: 00 [facility] Acute gout of left hand, unspecifie d cause Acute gout of left hand, unspecifie d cause Disease Active 9-16 00:00: 00 [facility] Pain of left thumb Pain of left thumb Disease Active 6-26 00:00: 00 [facility] Migraine without aura and without status migrainosu s, not intractabl e Migraine without aura and without status migrainosu s, not intractabl e Disease Active 05-22 00:00: 00 [facility] Leukopenia , unspecifie d type Leukopenia , unspecifie d type Disease Active 05-22 00:00: 00 [facility] Type 2 diabetes mellitus without complicati on, without long-term current use of insulin Type 2 diabetes mellitus without complicati on, without long-term current use of insulin Disease Active 05-22 00:00: 00 [facility] Type 2 diabetes mellitus without complicati on, without long-term current use of insulin Type 2 diabetes mellitus without complicati on, without long-term current use of insulin Disease Active 9- 00:00: 00 [facility] Epicondyli tis elbow, medial, left Epicondyli tis elbow, medial, left Disease Active 4-21 00:00: 00 [facility] Epicondyli tis elbow, medial, right Epicondyli tis elbow, medial, right Disease Active 4-21 00:00: 00 [facility] Need for hepatitis C screening test Need for hepatitis C screening test Disease Active 1-13 00:00: 00 [facility] Need for vaccinatio n Need for vaccinatio n Disease Active 1-13 00:00: 00 [facility] Chronic left-sided low back pain without sciatica Chronic left-sided low back pain without sciatica Disease Active 2021-09 0-03 00:00: 00 [facility] Left hip pain Left hip pain Disease Active 6-22 00:00: 00 [facility] Encounter to establish care Encounter to establish care Disease Active 2-22 00:00: 00 [facility] Primary hypertensi on Primary hypertensi on Disease Active 2-22 00:00: 00 [facility] Chronic left shoulder pain Chronic left shoulder pain Disease Active 2-22 00:00: 00 [facility] Paresthesi a Paresthesi a Disease Active 2-22 00:00: 00 [facility] Colon cancer screening Colon cancer screening Disease Resolve d 2-26 00:00: 00 2024-06-30 00:00:00 2024-06-30 17:10:09 [facility] Abnormal EKG Abnormal EKG Disease Resolve d 2-22 00:00: 00 2024-06-30 00:00:00 2024-06-30 17:10:04 [facility] Encounter to establish care Encounter to establish care Disease Resolve d 2-22 00:00: 00 2024-06-30 00:00:00 2024-06-30 17:10:13 [facility] Allergies, Adverse Reactions, Alerts Allergy Name Allergy Type Status Severity Reaction(s) Onset Date Inactive Date Treating Clinician Comments Source No Known Allergie s DA Active U 6-19 00:00: 00 [facility] NO KNOWN ALLERGIE S Drug Class Active [facility] Social History Social Habit Start Date Stop Date Quantity Comments Source Gender identity [facility] function 2024-12-05 00:00:00 2024-12-05 00:00:00 [facility] Exposure to SARS-CoV-2 (event) 2022-12-30 00:00:00 2023-01-09 11:41:00 Not sure [facility] Tobacco use and exposure 2022-06-23 00:00:00 2022-06-23 00:00:00 Smokeless tobacco non-user [facility] Sex assigned at 1975 00:00:00 1975 00:00:00 [facility] Smoking Status Start Date Stop Date Source Never smoked tobacco [facility] Medications Ordered Medication Name Filled Medication Name Start Date Stop Date Current Medication? Ordering Clinician Indication Dosage Frequency Signature (SIG) Comments Components Source metformin ER 500 mg 24 hr tablet 12-05 00:00: 00 Yes [id number] 500mg Take 1 tablet by mouth every morning and evening. [facility] metoprolol succinate XL 50 mg 24 hr tablet 12-05 00:00: 00 Yes [id number] 50mg Take 1 tablet by mouth in the morning. [facility] allopurinoL 100 mg tablet 12-05 00:00: 00 Yes [id number] 100mg Take 1 tablet by mouth in the morning. [facility] metformin ER 500 mg 24 hr tablet 2023-09 2-12 00:00: 00 Yes [id number] 500mg TAKE 1 TABLET BY MOUTH IN THE MORNING AND IN THE EVENING [facility] methylPREDN ISolone 4 mg tablets 2023-09 00:00: 00 Yes [id number] Take by mouth SEE-INSTRU CTIONS. follow package directions [facility] cyclobenzap rine 5 mg tablet 2023-09 00:00: 00 Yes [id number] 5mg Take 1 tablet by mouth in the morning and 1 tablet at noon and 1 tablet in the evening. [facility] allopurinoL 100 mg tablet 06-06 00:00: 00 Yes [id number] 100mg Take 1 tablet by mouth in the morning. [facility] hydroCHLORO thiazide 25 mg tablet 06-06 00:00: 00 Yes [id number] 25mg Take 1 tablet by mouth in the morning. [facility] metoprolol succinate XL 50 mg 24 hr tablet 06-06 00:00: 00 Yes [id number] 50mg Take 1 tablet by mouth in the morning. [facility] metformin ER 500 mg 24 hr tablet 06-06 00:00: 00 09-01 00:00 :00 No [id number] 500mg Take 1 tablet by mouth in the morning and 1 tablet in the evening. [facility] colchicine 0.6 mg tablet 03-16 00:00: 00 Yes [id number] 2 tabs PO PRN at onset of gout flare up, followed by 1 tab 1 hr later only if needed. Max of 3 tabs in 24 hrs. [facility] methylPREDN ISolone (MEDROL, DARLENE,) 4 mg tablets 03-15 00:00: 00 03-21 04:59 :00 No [id number] Take by mouth SEE-INSTRU CTIONS for 5 days. follow package directions [facility] peg-electro lyte soln 236-22.74-6 .74 -5.86 gram solution 11-16 00:00: 00 11-17 05:59 :00 No [id number] 4000mL Take 4,000 mL by mouth once now for 1 dose. [facility] hydroCHLORO thiazide 25 mg tablet 11-10 00:00: 00 06-06 00:00 :00 No [id number] 25mg Take 1 tablet by mouth in the morning. [facility] metoprolol succinate XL 50 mg 24 hr tablet 2-20 00:00: 00 06-06 00:00 :00 No [id number] 50mg Take 1 tablet by mouth in the morning. [facility] ibuprofen 600 mg tablet 2-20 00:00: 00 11-24 05:59 :00 No [id number] 600mg Take 1 tablet by mouth every 6 (six) hours as needed for Temp > 38.5 C for up to 14 days. [facility] rizatriptan 5 mg tablet 9- 00:00: 00 Yes [id number] May repeat in 2 hours if needed [facility] cyclobenzap rine 5 mg tablet 7-24 00:00: 00 06-30 00:00 :00 No [id number] 5mg Take 1 tablet by mouth in the morning and 1 tablet at noon and 1 tablet in the evening. [facility] hydroCHLORO thiazide 25 mg tablet 0 4-21 00:00: 00 11-10 00:00 :00 No [id number] 25mg Take 1 tablet by mouth in the morning. [facility] metoprolol succinate XL 50 mg 24 hr tablet 4-21 00:00: 00 11-10 00:00 :00 No [id number] 50mg Take 1 tablet by mouth in the morning. [facility] ibuprofen 600 mg tablet 0 4-21 00:00: 00 01-24 04:59 :00 No [id number] 600mg Take 1 tablet by mouth every 6 (six) hours as needed for Temp > 38.5 C for up to 14 days. [facility] metoprolol succinate XL 50 mg 24 hr tablet 2021-09 0-03 00:00: 00 01-09 00:00 :00 No [id number] 50mg Take 1 tablet by mouth in the morning. [facility] cyclobenzap rine 5 mg tablet 2021-09 0-03 00:00: 00 07-08 04:59 :00 No [id number] 5mg Take 1 tablet by mouth in the morning and 1 tablet at noon and 1 tablet in the evening. Do all this for 14 days. [facility] hydroCHLORO thiazide 25 mg tablet 9-23 00:00: 00 01-09 00:00 :00 No [id number] 25mg Take 1 tablet by mouth in the morning. [facility] hydroCHLORO thiazide 25 mg tablet 6-16 00:00: 00 06-13 00:00 :00 No 25mg Take 25 mg by mouth daily. [facility] sod chlor-bicar b-squeez bottle (NEILMED SINUS RINSE COMPLETE) pkdv 1- 00:00: 00 01-09 00:00 :00 No 1{bottl e} Use 1 Bottle in each nostril 2 (two) times daily. Use in hot shower 1 hour before bedtime [facility] promethazin e-codeine 6.25-10 mg/5 mL syrup 1-11 00:00: 00 06-23 00:00 :00 No 5mL Take 5 mL by mouth 4 (four) times daily as needed for Cough. [facility] Immunizations Ordered Immunization Name Filled Immunization Name Date Status Comments Source SARS-COV-2 COVID 19 AMADEO SUCROSE VACCINE 12+, 0.3 ML (30 MCG), IM PFIZER (WHELAN TOP) 2024-12-05 00:00:00 Completed [facility] TDAP 2022-10-03 00:00:00 Completed [facility] SARS-COV-2 COVID-19 AMADEO-SUCROSE VACCINE 12 YRS+, BIVALENT 0.3ML, IM, (PFIZER WHELAN TOP BOOSTER) 2022-10-03 00:00:00 Completed [facility] TDAP 2022-10-03 00:00:00 Completed [facility] SARS-COV-2 COVID-19 AMADEO-SUCROSE VACCINE 12 YRS+, BIVALENT 0.3ML, IM, (PFIZER WHELAN TOP BOOSTER) 2022-10-03 00:00:00 Completed [facility] TDAP 2022-10-03 00:00:00 Completed [facility] SARS-COV-2 COVID-19 AMADEO-SUCROSE VACCINE 12 YRS+, BIVALENT 0.3ML, IM, (PFIZER WHELAN TOP BOOSTER) 2022-10-03 00:00:00 [facility] 20[facility] 00:00:00 Completed [facility] SARS-COV-2 COVID-19 AMADEO-SUCROSE VACCINE 12 YRS+, BIVALENT 0.3ML, IM, (PFIZER WHELAN TOP BOOSTER) 2022-10-03 00:00:00 [facility] 2022-10-03 00:00:00 Completed [facility] SARS-COV-2 COVID-19 AMADEO-SUCROSE VACCINE 12 YRS+, BIVALENT 0.3ML, IM, (PFIZER WHELAN TOP BOOSTER) 2022-10-03 00:00:00 [facility] 2022-10-03 00:00:00 Completed [facility] SARS-COV-2 COVID-19 AMADEO-SUCROSE VACCINE 12 YRS+, BIVALENT 0.3ML, IM, (PFIZER WHELAN TOP) 2022-10-03 00:00:00 [facility]pleted [facility] 2022-10-03 00:00:00 Completed [facility] SARS-COV-2 COVID-19 AMADEO-SUCROSE VACCINE 12 YRS+, BIVALENT 0.3ML, IM, (PFIZER WHELAN TOP) 2022-10-03 00:00:00 [facility]pleted [facility] 2022-10-03 00:00:00 Completed [facility] SARS-COV-2 COVID-19 AMADEO-SUCROSE VACCINE 12 YRS+, BIVALENT 0.3ML, IM, (PFIZER WHELAN TOP) 2022-10-03 00:00:00 [facility]pleted [facility] 2022-10-03 00:00:00 Completed [facility] SARS-COV-2 COVID-19 AMADEO-SUCROSE VACCINE 12 YRS+, BIVALENT 0.3ML, IM, (PFIZER WHELAN TOP) 2022-10-03 00:00:00 Completed [facility] TDAP 2022-10-03 00:00:00 Completed [facility] SARS-COV-2 COVID-19 AMADEO-SUCROSE VACCINE 12 YRS+, BIVALENT 0.3ML, IM, (PFIZER WHELAN TOP) 2022-10-03 00:00:00 Completed [facility] TDAP 2022-10-03 00:00:00 Completed [facility] SARS-COV-2 COVID-19 AMADEO-SUCROSE VACCINE 12 YRS+, BIVALENT 0.3ML, IM, (PFIZER WHELAN TOP) 2022-10-03 00:00:00 Completed SARS-COV-2 COVID-19 PFIZER VACCINE 2021-01-01 00:00:00 Completed [facility] SARS-COV-2 COVID-19 PFIZER VACCINE 2021-01-01 00:00:00 Completed [facility] SARS-COV-2 COVID-19 PFIZER VACCINE 2021-01-01 00:00:00 Completed [facility] SARS-COV-2 COVID-19 PFIZER VACCINE 2021-01-01 00:00:00 Completed [facility] SARS-COV-2 COVID-19 PFIZER VACCINE 2021-01-01 00:00:00 Completed [facility] SARS-COV-2 COVID-19 PFIZER VACCINE 2021-01-01 00:00:00 Completed [facility] SARS-COV-2 COVID-19 PFIZER VACCINE 2021-01-01 00:00:00 Completed [facility] SARS-COV-2 COVID-19 PFIZER VACCINE 2021-01-01 00:00:00 Completed [facility] SARS-COV-2 COVID-19 PFIZER VACCINE 2021-01-01 00:00:00 Completed [facility] SARS-COV-2 COVID-19 PFIZER VACCINE 2021-01-01 00:00:00 Completed [facility] SARS-COV-2 COVID-19 PFIZER VACCINE 2021-01-01 00:00:00 Completed [facility] SARS-COV-2 COVID-19 PFIZER VACCINE 2021-01-01 00:00:00 Completed [facility] SARS-COV-2 COVID-19 PFIZER VACCINE 2021-01-01 00:00:00 Completed [facility] SARS-COV-2 COVID-19 PFIZER VACCINE 2021-01-01 00:00:00 Completed [facility] SARS-COV-2 COVID-19 PFIZER VACCINE 2021-01-01 00:00:00 Completed [facility] SARS-COV-2 COVID-19 PFIZER VACCINE 2021-01-01 00:00:00 Completed [facility] SARS-COV-2 COVID-19 PFIZER VACCINE 2021-01-01 00:00:00 Completed [facility] SARS-COV-2 COVID-19 PFIZER VACCINE 2020-12-11 00:00:00 Completed [facility] SARS-COV-2 COVID-19 PFIZER VACCINE 2020-12-11 00:00:00 Completed [facility] SARS-COV-2 COVID-19 PFIZER VACCINE 2020-12-11 00:00:00 Completed [facility] SARS-COV-2 COVID-19 PFIZER VACCINE 2020-12-11 00:00:00 Completed [facility] SARS-COV-2 COVID-19 PFIZER VACCINE 2020-12-11 00:00:00 Completed [facility] SARS-COV-2 COVID-19 PFIZER VACCINE 2020-12-11 00:00:00 Completed [facility] SARS-COV-2 COVID-19 PFIZER VACCINE 2020-12-11 00:00:00 Completed [facility] SARS-COV-2 COVID-19 PFIZER VACCINE 2020-12-11 00:00:00 Completed [facility] SARS-COV-2 COVID-19 PFIZER VACCINE 2020-12-11 00:00:00 Completed [facility] SARS-COV-2 COVID-19 PFIZER VACCINE 2020-12-11 00:00:00 Completed [facility] SARS-COV-2 COVID-19 PFIZER VACCINE 2020-12-11 00:00:00 Completed [facility] SARS-COV-2 COVID-19 PFIZER VACCINE 2020-12-11 00:00:00 Completed [facility] SARS-COV-2 COVID-19 PFIZER VACCINE 2020-12-11 00:00:00 Completed [facility] SARS-COV-2 COVID-19 PFIZER VACCINE 2020-12-11 00:00:00 Completed [facility] SARS-COV-2 COVID-19 PFIZER VACCINE 2020-12-11 00:00:00 Completed [facility] SARS-COV-2 COVID-19 PFIZER VACCINE 2020-12-11 00:00:00 Completed [facility] SARS-COV-2 COVID-19 PFIZER VACCINE 2020-12-11 00:00:00 Completed [facility] TDAP Unknown Completed [facility] SARS-COV-2 COVID-19 AMADEO-SUCROSE VACCINE 12 YRS+, BIVALENT 0.3ML, IM, (PFIZER WHELAN TOP) Unknown Completed [facility] SARS-COV-2 COVID-19 PFIZER VACCINE Unknown Completed [facility] TDAP Unknown Completed [facility] SARS-COV-2 COVID-19 AMADEO-SUCROSE VACCINE 12 YRS+, BIVALENT 0.3ML, IM, (PFIZER WHELAN TOP) Unknown Completed [facility] SARS-COV-2 COVID-19 PFIZER VACCINE Unknown Completed [facility] SARS-COV-2 COVID-19 PFIZER VACCINE Unknown Completed [facility] TDAP Unknown Completed [facility] SARS-COV-2 COVID-19 AMADEO-SUCROSE VACCINE 12 YRS+, BIVALENT 0.3ML, IM, (PFIZER WHELAN TOP) Unknown Completed [facility] SARS-COV-2 COVID-19 PFIZER VACCINE Unknown Completed [facility] TDAP Unknown Completed [facility] SARS-COV-2 COVID-19 AMADEO-SUCROSE VACCINE 12 YRS+, BIVALENT 0.3ML, IM, (PFIZER WHELAN TOP) Unknown Completed [facility] SARS-COV-2 COVID-19 PFIZER VACCINE Unknown Completed [facility] TDAP Unknown Completed [facility] SARS-COV-2 COVID-19 AMADEO-SUCROSE VACCINE 12 YRS+, BIVALENT 0.3ML, IM, (PFIZER WHELAN TOP) Unknown Completed [facility] SARS-COV-2 COVID-19 PFIZER VACCINE Unknown Completed [facility] TDAP Unknown Completed [facility] SARS-COV-2 COVID-19 AMADEO-SUCROSE VACCINE 12 YRS+, BIVALENT 0.3ML, IM, (PFIZER WHELAN TOP) Unknown Completed [facility] SARS-COV-2 COVID-19 PFIZER VACCINE Unknown Completed [facility] TDAP Unknown Completed [facility] SARS-COV-2 COVID-19 AMADEO-SUCROSE VACCINE 12 YRS+, BIVALENT 0.3ML, IM, (PFIZER WHELAN TOP) Unknown Completed [facility] SARS-COV-2 COVID-19 PFIZER VACCINE Unknown Completed [facility] TDAP Unknown Completed [facility] SARS-COV-2 COVID-19 AMADEO-SUCROSE VACCINE 12 YRS+, BIVALENT 0.3ML, IM, (PFIZER WHELAN TOP) Unknown Completed [facility] SARS-COV-2 COVID-19 PFIZER VACCINE Unknown Completed [facility] TDAP Unknown Completed [facility] SARS-COV-2 COVID-19 AMADEO-SUCROSE VACCINE 12 YRS+, BIVALENT 0.3ML, IM, (PFIZER WHELAN TOP) Unknown Completed [facility] SARS-COV-2 COVID-19 PFIZER VACCINE Unknown Completed [facility] TDAP Unknown Completed [facility] SARS-COV-2 COVID-19 AMADEO-SUCROSE VACCINE 12 YRS+, BIVALENT 0.3ML, IM, (PFIZER WHELAN TOP) Unknown Completed [facility] Vital Signs Vital Name Observation Time Observation Value Comments S ource Body height 2024-06-30 21:11:00 165.1 cm [facility] Body weight 2024-06-30 21:11:00 84.097 kg [facility] BMI 2024-06-30 21:11:00 30.85 kg/m2 [facility] Systolic blood pressure 2024-06-06 14:27:00 138 mm[Hg] [facility] Diastolic blood pressure 2024-06-06 14:27:00 88 mm[Hg] [facility] Heart rate 2024-06-06 14:27:00 67 /min [facility] Body temperature 2024-06-06 14:27:00 36.78 Maribell [facility] Respiratory rate 2024-06-06 14:27:00 18 /min [facility] Body height 2024-06-06 14:27:00 165.1 cm [facility] Body weight 2024-06-06 14:27:00 84.369 kg [facility] BMI 2024-06-06 14:27:00 30.95 kg/m2 [facility] Oxygen saturation in Arterial blood by Pulse oximetry 2024-06-06 14:27:00 98 /min [facility] Systolic blood pressure 2024-03-15 20:13:00 131 mm[Hg] [facility] Diastolic blood pressure 2024-03-15 20:13:00 87 mm[Hg] [facility] Heart rate 2024-03-15 20:13:00 83 /min [facility] Body height 2024-03-15 20:13:00 165.1 cm [facility] Body weight 2024-03-15 20:13:00 80.105 kg [facility] BMI 2024-03-15 20:13:00 29.39 kg/m2 [facility] Oxygen saturation in Arterial blood by Pulse oximetry 2024-03-15 20:13:00 98 /min [facility] Systolic blood pressure 2023-11-16 22:24:00 137 mm[Hg] [facility] Diastolic blood pressure 2023-11-16 22:24:00 93 mm[Hg] [facility] Heart rate 2023-11-16 22:24:00 74 /min [facility] Oxygen saturation in Arterial blood by Pulse oximetry 2023-11-16 22:24:00 98 /min [facility] Respiratory rate 2023-11-16 22:23:00 18 /min [facility] Body height 2023-11-16 22:23:00 165.1 cm [facility] Body weight 2023-11-16 22:23:00 81.194 kg [facility] BMI 2023-11-16 22:23:00 29.79 kg/m2 [facility] Systolic blood pressure 2023-11-10 17:33:00 133 mm[Hg] [facility] Diastolic blood pressure 2023-11-10 17:33:00 90 mm[Hg] [facility] Heart rate 2023-11-10 17:32:00 71 /min [facility] Body temperature 2023-11-10 17:32:00 36.72 Maribell [facility] Respiratory rate 2023-11-10 17:32:00 18 /min [facility] Body height 2023-11-10 17:32:00 165.1 cm [facility] Body weight 2023-11-10 17:32:00 83.099 kg [facility] [place] BMI 2023-11-10 17:32:00 30.49 kg/m2 [facility] Oxygen saturation in Arterial blood by Pulse oximetry 2023-11-10 17:32:00 98 /min [place] [facility] [place] Systolic blood pressure 2023-05-22 14:21:00 108 mm[Hg] [facility] Diastolic blood pressure 2023-05-22 14:21:00 71 mm[Hg] [facility] Heart rate 2023-05-22 14:21:00 57 /min [facility] Body height 2023-05-22 14:21:00 165.1 cm [facility] [facility] Body weight 2023-05-22 14:21:00 82.555 kg [facility] BMI 2023-05-22 14:21:00 30.29 kg/m2 [facility] Oxygen saturation in Arterial blood by Pulse oximetry 2023-05-22 14:21:00 99 /min [facility] Systolic blood pressure 2023-04-13 19:40:00 113 mm[Hg] [facility] Diastolic blood pressure 2023-04-13 19:40:00 73 mm[Hg] [facility] Heart rate 2023-04-13 19:40:00 78 /min [facility] Body height 2023-04-13 19:40:00 165.1 cm [facility] Body weight 2023-04-13 19:40:00 84.369 kg [facility] BMI 2023-04-13 19:40:00 30.95 kg/m2 [facility] Oxygen saturation in Arterial blood by Pulse oximetry 2023-04-13 19:40:00 97 /min [facility] Systolic blood pressure 2023-01-09 16:54:00 124 mm[Hg] [facility] Diastolic blood pressure 2023-01-09 16:54:00 82 mm[Hg] [facility] Heart rate 2023-01-09 16:54:00 77 /min Unive [facility] Body temperature 2023-01-09 16:54:00 36.72 [facility]ib[facility] Body height 2023-01-09 16:54:00 165.1 cm Univ [facility] Body weight 2023-01-09 16:54:00 84.369 kg Univ [facility] BMI 2023-01-09 16:54:00 30.95 kg/m2 Univ [facility] Oxygen saturation in Arterial blood by Pulse oximetry 2023-01-09 16:54:00 98 /min [facility] Systolic blood pressure 2022-10-03 14:11:00 128 mm[Hg] [facility] Diastolic blood pressure 2022-10-03 14:11:00 81 mm[Hg] [facility] Heart rate 2022-10-03 14:11:00 56 /min Un[facility] Body temperature 2022-10-03 14:11:00 36.78 Maribell [facility] Body height 2022-10-03 14:11:00 165.1 cm Univ [facility] Body weight 2022-10-03 14:11:00 83.462 kg [facility] BMI 2022-10-03 14:11:00 30.62 kg/m2 [facility] Oxygen saturation in Arterial blood by Pulse oximetry 2022-10-03 14:11:00 99 /min [facility] Systolic blood pressure 2022-06-23 15:26:00 147 mm[Hg] [facility] Diastolic blood pressure 2022-06-23 15:26:00 91 mm[Hg] [facility] Heart rate 2022-06-23 15:21:00 72 /min Un[facility] Body temperature 2022-06-23 15:21:00 36.44 Maribell [facility] Body height 2022-06-23 15:21:00 165.1 cm Univ [facility] Body weight 2022-06-23 15:21:00 83.87 kg Univ [facility] BMI 2022-06-23 15:21:00 30.77 kg/m2 Univ [facility] Oxygen saturation in Arterial blood by Pulse oximetry 2022-06-23 15:21:00 98 /min [facility] Systolic blood pressure 2022-04-04 20:27:00 128 mm[Hg] [facility] Diastolic blood pressure 2022-04-04 20:27:00 77 mm[Hg] [facility] Heart rate 2022-04-04 20:27:00 60 /min Unive [facility] Body temperature 2022-04-04 20:27:00 37.11 Maribell [facility] Respiratory rate 2022-04-04 20:27:00 17 /min [facility] Body height 2022-04-04 20:27:00 165.1 cm [facility] Body weight 2022-04-04 20:27:00 83.643 kg [facility] BMI 2022-04-04 20:27:00 30.69 kg/m2 [facility] Oxygen saturation in Arterial blood by Pulse oximetry 2022-04-04 20:27:00 98 /min [facility] Procedures Procedure Date / Time Performed Performing Clinicia n Source ASSIGNMENT OF BENEFITS 2023-01-09 16:42:15 Docto r Unassigned, [place] [facility] SARS-COV-2 COVID-19 AMADEO-SUCROSE VACCINE 12 YRS+, BIVALENT 0.3ML, IM, (PFIZER WHELAN TOP BOOSTER) 2022-10-03 14:24:33 Lionel Hart [facility] TDAP VACCINE, >11 YRS, IM 2022-10-03 14:24:00 Lionel Hart [facility] Encounters Start Date/Time End Date/Time Encounter Type Admission Type Attending [facility] Care Facility Care Department Encounter ID Source 2023-11-25 08:26:08 Outpatient R MARZENA REED [facility] [id number] [facility] 2024-12-30 00:00:00 2024-12-30 18:46:49 Letter (Out) [facility] 1.2.840.114 350.1.13.10 4.2.7.2.686 [id number] [facility] 2024-12-28 15:00:00 2024-12-28 15:00:00 Outpatient R LIONEL HART [facility] [id number] [facility] 2024-12-05 09:30:00 2024-12-05 10:41:00 Outpatient R LIONEL HART [facility] [id number] [facility] 2024-09-01 00:00:00 2024-09-01 07:36:52 [facility]ill [facility] 1.84.114 350.1.13.10 4.2.7.2.686 [id number] [facility] 2024-08-10 10:00:00 2024-08-10 10:00:00 Outpatient R ELIZABETH CHACKO [facility] [id number] [facility] 2024-07-01 00:00:00 2024-07-01 14:11:53 [facility] 1.84.114 350.1.13.10 4.2.7.2.686 [id number] [facility] 2024-06-30 16:15:36 2024-06-30 23:59:00 Outpatient R MANA SHEPARD SELENA [facility] [id number] [facility] 2024-06-30 16:15:36 2024-06-30 23:59:00 Hospital Encounter Mana Shepard [facility] 1.84.114 350.1.13.10 4.2.7.2.686 [id number] [facility] 2024-06-30 16:30:00 2024-06-30 16:52:23 [facility] 1.84.114 350.1.13.10 4.2.7.2.686 [id number] [facility] 2024-06-06 00:00:00 2024-06-06 15:03:33 Telephone Lionel Hart [facility] 1.2.840.114 350.1.13.10 4.2.7.2.686 [id number] [facility] 2024-06-06 11:00:00 2024-06-06 11:15:00 Parking Lot Laborer Visit Lab, Ang - Db JilliansantosLionel Lab, Ang - Db [facility] FR[facility]Y?[facility] 1.2840.114 350.1.13.10 4.2.7.2.686 [id number] [facility] 2024-06-06 09:30:00 2024-06-06 09:45:31 Outpatient R JILLIANTANESHA AndradeIE [facility] [id number] [facility] 2024-06-06 09:30:00 2024-06-06 09:45:31 Office Visit JillianLionel andrade [facility] FR[facility]Y?[facility]LLY [facility] 1.2840.114 350.1.13.10 4.2.7.2.686 [id number] [facility] 2024-03-16 00:00:00 2024-03-18 11:47:54 Telephone JillianLionel andrade [facility] 1.2.840.114 350.1.13.10 4.2.7.2.686 [id number] [facility] 2024-03-16 00:00:00 2024-03-16 09:11:32 Telephone JillianLionel andrade [facility] 1.2.840.114 350.1.13.10 4.2.7.2.686 [id number] [facility] 2024-03-15 16:15:00 2024-03-15 16:30:00 Parking Lot Laborer Visit Lab, Amadeo HartLionel [facility] FR[facility]Y?[facility] 1..840.114 350.1.13.10 4.2.7.2.686 [id number] [facility] 2024-03-15 15:30:00 2024-03-15 15:44:54 Outpatient R TANNERTANESHAIE [facility] [id number] [facility] 2024-03-15 15:30:00 2024-03-15 15:44:54 Office Visit Tanner Lionel [facility] FR[facility]Y?[facility] 1..840.114 350.1.13.10 4.2.7.2.686 [id number] [facility] 2023-11-16 16:00:00 2023-11-16 16:38:26 Outpatient R MARZENA REED [facility] [id number] [facility] 2023-11-16 16:00:00 2023-11-16 16:38:26 Office Visit Nafisa [facility] NAL BUILDING 1..840.114 350.1.13.10 4.2.7.2.686 [id number] [facility] 2023-11-10 13:00:00 2023-11-10 13:00:00 Parking Lot Laborer Visit Lab, Amadeo WalshLionel andrade [facility] FR[facility] 1..840.114 350.1.13.10 4.2.7.2.686 [id number] [facility] 2023-11-10 11:30:00 2023-11-10 12:03:28 Outpatient R TANNER LIONEL [facility] [id number] [facility] 2023-11-10 11:30:00 2023-11-10 12:00:00 Office Visit Lionel Hart [facility] 1.2.840.114 350.1.13.10 4.2.7.2.686 [id number] [facility] 2023-05-22 09:00:00 2023-05-22 09:44:11 Outpatient R LIONEL HART [facility] [id number] [facility] 2023-05-22 09:00:00 2023-05-22 09:44:11 Office Visit Lionel Hart [facility] 1.2.840.114 350.1.13.10 4.2.7.2.686 [id number] [facility] 2023-05-22 00:00:00 2023-05-22 00:00:00 Letter (Out) Lionel Hart [facility] 1.2.840.114 350.1.13.10 4.2.7.2.686 [id number] [facility] 2023-04-15 00:00:00 2023-04-15 00:00:00 Telephone Lionel Hart [facility] 1.2.840.114 350.1.13.10 4.2.7.2.686 [id number] [facility] 2023-04-13 15:00:00 2023-04-13 15:15:00 Parking Lot Laborer Visit Lab, Ang - Db Lionel Hart [facility] FR[facility]Y?[facility] 1.2.840.114 350.1.13.10 4.2.7.2.686 [id number] [facility] 2023-04-13 14:30:00 2023-04-13 15:00:21 Outpatient R LIONEL HART [facility] [id number] [facility] 2023-04-13 14:30:00 2023-04-13 15:00:21 Office Visit Tanner Lionel [facility] FRANDY?ADELINESantos [facility] 1..840.114 350.1.13.10 4.2.7.2.686 [id number] [facility] 2023-04-01 14:30:00 2023-04-01 14:30:00 Outpatient R LIONEL HART [facility] [id number] [facility] 2023-03-13 15:30:00 2023-03-13 15:30:00 Outpatient R LIONEL HART [facility] [id number] [facility] 2023-01-09 11:30:00 2023-01-09 12:10:20 Office Visit TannerTaneshaFormerly [facility] FRANDY?KELLY [facility] 1..840.114 350.1.13.10 4.2.7.2.686 [id number] [facility] 2023-01-09 11:30:00 2023-01-09 12:10:20 Outpatient R LIONEL HART [facility] [id number] [facility] 2023-01-09 00:00:00 2023-01-09 00:00:00 Orders Only Doctor Unassigned, [place] [facility] 1..840.114 350.1.13.10 4.2.7.2.686 [id number] [facility] 2022-10-10 00:00:00 2022-10-10 00:00:00 Telephone TannerLionel [facility] FRANDY?[facility] 1..840.114 350.1.13.10 4.2.7.2.686 [id number] [facility] 2022-10-03 08:45:00 2022-10-03 09:00:00 Parking Lot Laborer Visit Lab, Lionel Skinner [facility] FR[facility]Y?[facility] 1..840.114 350.1.13.10 4.2.7.2.686 [id number] [facility] 2022-10-03 08:00:00 2022-10-03 08:48:30 Outpatient R LIONEL HART [facility] [id number] [facility] 2022-10-03 08:00:00 2022-10-03 08:48:30 Office Visit [facility] Hart [facility] 1..840.114 350.1.13.10 4.2.7.2.686 [id number] [facility] 2022-06-24 00:00:00 2022-06-24 00:00:00 Telephone Lionel Hart [facility] FRANDY?[facility] 1..840.114 350.1.13.10 4.2.7.2.686 [id number] [facility] 2022-06-23 10:52:39 2022-06-23 23:59:00 Outpatient R LIONEL HART [facility] [id number] [facility] 2022-06-23 10:30:00 2022-06-23 10:53:10 Office Visit Lionel Hart [facility] 1..840.114 350.1.13.10 4.2.7.2.686 [id number] [facility] 2022-06-17 16:00:00 2022-06-17 16:00:00 Outpatient R LIONEL HART [facility] [id number] [facility] 2022-06-13 00:00:00 2022-06-13 00:00:00 Refill Lionel Hart [facility] FRANDY?[facility] 1..840.114 350.1.13.10 4.2.7.2.686 [id number] [facility] 2022-05-13 13:30:00 2022-05-13 13:30:00 Outpatient R TANNER LIONEL [facility] [id number] [facility] 2022-05-13 00:00:00 2022-05-13 00:00:00 Letter (Out) Terrance Barraza [facility] 1.840.114 350.1.13.10 4.2.7.2.686 [id number] [facility] 2022-05-12 11:00:00 2022-05-12 11:15:00 Laboratory Only Only, Ang Db Test [facility] 1..840.114 350.1.13.10 4.2.7.2.686 [id number] [facility] 2022-05-12 11:00:00 2022-05-12 11:04:01 Outpatient R AYLIN [facility] [id number] [facility] 2022-05-07 13:00:00 2022-05-07 23:59:00 [facility] [id number] [facility] 2022-04-30 14:00:00 2022-04-30 14:00:00 [facility] [id number] [facility] 2022-04-04 15:00:00 2022-04-04 15:40:11 [facility] [id number] [facility] 2022-04-04 15:00:00 2022-04-04 15:40:11 [facility] 1..840.114 350.1.13.10 4.2.7.2.686 [id number] [facility] 2022-03-20 11:30:00 2022-03-20 11:30:00 Outpatient R MIS MCCLENDON AMER [facility] [id number] [facility] 2022-03-20 11:30:00 2022-03-20 11:30:00 Outpatient R MIS MCCLENDON [facility] [id number] [facility] 2022-03-17 00:00:00 2022-03-17 00:00:00 Telephone MlevinGladis [facility] 1.2.840.114 350.1.13.10 4.2.7.2.686 [id number] [facility] 2022-03-15 08:45:00 2022-03-15 09:00:00 Parking Lot Laborer Visit Pob, Adc Lab Main [facility] 1.2.840.114 350.1.13.10 4.2.7.2.686 [id number] [facility] 2022-03-15 08:45:00 2022-03-15 08:45:00 Outpatient EBONY VELIZ ELENITA [facility] [id number] [facility] 2022-03-12 16:00:00 2022-03-12 16:58:25 Outpatient R LIONEL HART [facility] [id number] [facility] 2022-03-12 16:00:00 2022-03-12 16:58:25 Office Visit Lionel Hart [facility] FRANDY?KELLY [facility] 1.2.840.114 350.1.13.10 4.2.7.2.686 [id number] [facility] 2022-02-03 07:30:00 2022-02-03 07:30:00 Outpatient R ALEJANDRO JACOBSON [facility] [id number] [facility] 2022-01-08 16:00:00 2022-01-08 16:15:00 Office Visit Nilson Dennis Craig L [facility]?KE[facility] 1.840.114 350.1.13.10 4.2.7.2.686 [id number] [facility] 2022-01-08 16:00:00 2022-01-08 16:00:00 Outpatient EMMY CARVALHO [facility] [id number] [facility] 2022-01-08 16:00:00 2022-01-08 16:00:00 Outpatient EMMY CARVALHO [facility] [id number] [facility] 2021-12-17 08:00:00 2021-12-17 08:00:00 Outpatient LIONEL NAIK [facility] [id number] [facility] 2021-12-17 08:00:00 2021-12-17 08:00:00 Outpatient LIONEL NAIK [facility] [id number] [facility] 2021-12-13 16:30:00 2021-12-13 17:10:07 Outpatient LIONEL NAIK [facility] [id number] [facility] 2021-12-13 16:30:00 2021-12-13 17:10:07 Office Visit Lionel Hart [facility]?KELLY [facility] 1.840.114 350.1.13.10 4.2.7.2.686 [id number] [facility] 2021-12-13 16:30:00 2021-12-13 16:30:00 Outpatient LIONEL NAIK [facility] [id number] [facility] 2021-12-10 00:00:00 2021-12-10 00:00:00 Telephone Lionel Hart [facility] 1.840.114 350.1.13.10 4.2.7.2.686 [id number] [facility] 2021-12-09 11:30:00 2021-12-09 12:00:00 [facility] 1.2840.114 350.1.13.10 4.2.7.2.686 [id number] [facility] 2021-12-09 11:30:00 2021-12-09 11:30:00 Outpatient R EBONY KURTZ ELENITA [facility] [id number] [facility] 2021-12-09 00:00:00 2021-12-09 00:00:00 Telephone Lionel Hart [facility]?KELLY [facility] 1..840.114 350.1.13.10 4.2.7.2.686 [id number] [facility] 2021-11-25 10:51:00 2021-11-25 12:07:00 Emergency X BRANDEE HUI RUST ERT [id number] [facility] 2021-11-25 10:51:00 2021-11-25 12:07:00 Emergency Brandee Hui S [facility] 1..840.114 350.1.13.10 4.2.7.2.686 [id number] [facility] 2021-11-25 00:00:00 2021-11-25 00:00:00 Orders Only Doctor Unassigned, [place] [facility] 1.840.114 350.1.13.10 4.2.7.2.686 [id number] [facility] 2021-11-12 10:00:00 2021-11-12 11:21:34 Outpatient R LIONEL HART [facility] [id number] [facility] Results Test Description Test Time Test Comments Results Result Co mments Source SURG 2019-03-14 15:41:00 --------RUN DATE: 03/14/19 [facility] - LAB *LIVE* PAGE 1 RUN TIME: 154 Specimen Inquiry RUN USER: INTERFACE --------PATIENT: FELIX POMPA LOC: [facility] U #: [id number] AGE/SX: 44/M ROOM: RE03/11/19REG DR: Lane Bob MD : 75 BED: DIS: STATUS: [facility] TLOC: -------- SPEC #: [id number] RECD: 03/11/19 STATUS: KERRI REQ #: [id number] TRU: 03/11/19 [facility] DR: Lane Bob MD ENTERED: 03/11/19 SP TYPE: SURG OTHR DR: DOES_NOT KNOW ORDERED: SURG PATH LVL 2 COPIES TO: DOES_[place] [id number] [address] [place], [place] [id number] [email or web address]: TISSUE ID BLK PCS MARY LEV PROCEDURE DISPOSITION ____ ___ ___ ___ TESTIS, NOS A 1 1 PROCEDURES: SURG PATH LVL 2 (03/14/19-1223) TISSUES: A. TESTIS, NOS - LEFT HYDROCELE SAC CLINICAL HISTORY HYDROCELE -N43.3 CPT CODES CPT CODE(S): 02576 , , , , , , FINAL [...] fibrous tissue. No gross lesion is identified. Manager Simulation sections submitted as A1 and A2. ba/nr Grossing performed at [facility] Pathology, [address] [place] [address], [address], [place] [address]. Gas Engine Mechanic: Fer Ohara M.D. CONTINUED ON NEXT PAGE --------RUN DATE: 03/14/19 [facility] - LAB *LIVE* PAGE 2 RUN TIME: 1541 Specimen Inquiry RUN USER: INTERFACE --------SPEC #: [id number] PATIENT: FELIX POMPA #[id number] (Continued) MICROSCOPIC DESCRIPTION Left hydrocele sac. Sections show a cystic structure with no epithelial lining. There is no evidence of atypia identified. No spermatozoa are present. No evidence of malignancy. /c Signed SIGNATURE ON FILE JosénguyenSwapna Morton 03/14/19 1541 -------- END OF REPORT Notes Date/Time Note Provider Source 2024-09-01 07:35:41 Last Refilled: DispRefillsStartEndDAWmetformi n ER 500 mg 24 hr [id number] --NoSig: Take 1 tablet by mouth in the morning and 1 tablet in the evening.Sent to pharmacy as: metFORMIN ER 500 mg tablet,extended release 24 hr (GLUCOPHAGE-XR)Class: eRXRoute: OralOrder: [id number]/Time Signed: 06/06/2024 15:02E-Prescribing Status: Receipt confirmed by pharmacy (06/06/2024 3:03 PM CDT) Notes: Recent Visits Date Type Provider Dept 06/06/24 Office Visit Lionel Hart FNP [facility] 03/15/24 Office Visit Lionel Hart FNP [facility] 11/10/23 Office Visit Lionel Hart FNP [facility] 05/22/23 Office Visit Lionel Hart FNP [facility] 04/13/23 Office Visit Lionel Hart FNP [facility] Showing recent visits within past 540 days with a meds authorizing provider and meeting all other requirements Future Appointments Date Type Provider Dept 12/05/24 Appointment Lionel Hart FNP [facility] Showing future appointments within next 150 days with a meds authorizing provider and meeting all other requirements Parking Lot Laborer Visit on 06/06/2024 Component Date Value HGB A1C 06/06/2024 6.7 (H) URIC ACID 06/06/2024 7.9 Parking Lot Laborer Visit on 03/15/2024 Component Date Value HGB A1C 03/15/2024 6.6 (H) URIC ACID 03/15/2024 9.2 (H) CREAT U 03/15/2024 123.6 MICROALB U 03/15/2024 18 MICROAL/CR 03/15/2024 15 [employer] Visit on 11/10/2023 Component Date Value NA 11/10/2023 138 K 11/10/2023 3.9 CL 11/10/2023 101 CO2 TOTAL 11/10/2023 30 AGAP 11/10/2023 7 BUN 11/10/2023 13 GLUCOSE 11/10/2023 92 CREATININE 11/10/2023 0.88 TOTAL BILI 11/10/2023 0.6 CALCIUM 11/10/2023 9.7 T PROTEIN 11/10/2023 7.6 ALBUMIN 11/10/2023 4.1 ALK PHOS 11/10/2023 51 ALTv 11/10/2023 26 AST(SGOT) 11/10/2023 23 eGFR 11/10/2023 106.1 HGB A1C 11/10/2023 6.5 (H) CHOL 11/10/2023 152 HDL 11/10/2023 51 HDLC RATIO 11/10/2023 3.0 TRIG 11/10/2023 78 LDL CHOL 11/10/2023 85 VLDL 11/10/2023 16 TSH 11/10/2023 1.26 PSA 11/10/2023 0.68 HIV 1/2 Ag-Ab with Reflex 11/10/2023 Negative HIV Semi-quantitative 11/10/2023 0.07 CREAT U 11/10/2023 84.6 MICROALB U 11/10/2023 10 MICROAL/CR 11/10/2023 12 Office Visit on 11/10/2023 Component Date Value WBC 11/10/2023 4.50 RBC 11/10/2023 5.00 HGB 11/10/2023 14.5 HCT 11/10/2023 43.3 MCV 11/10/2023 86.6 MCH 11/10/2023 29.0 MCHC 11/10/2023 33.5 RDW-SD 11/10/2023 40.8 RDW-CV 11/10/2023 13.1 PLT 11/10/2023 229 MPV 11/10/2023 10.0 NRBC/100 WBC 11/10/2023 0.0 NRBC x10 3 11/10/2023 <0.01 GRAN MAT (NEUT) % 11/10/2023 54.9 IMM GRAN % 11/10/2023 0.20 LYMPH % 11/10/2023 32.9 MONO % 11/10/2023 8.0 EOS % 11/10/2023 3.3 BASO % 11/10/2023 0.7 GRAN MAT x10 3 (ANC) 11/10/2023 2.47 IMM GRAN x10 3 11/10/2023 <0.03 LYMPH x10 3 11/10/2023 1.48 MONO x10 3 11/10/2023 0.36 EOS x10 3 11/10/2023 0.15 BASO x10 3 11/10/2023 0.03 RONMENTAL SCIENTIST Johana Lennon RN [facility] 2024-07-01 14:08:08 Left voicemail to return call to schedule an appointment to discuss x-ray results. Orlando Miranda [facility] 2024-07-01 10:07:27 Providers do not discuss results over the phone ,patient was seen in clinic 06/30 with Mana .Any further questing patient would need to follow up with provider Yulia Nolasco MA 07/01/2024 10:09 AM Yulia Nolasco MA [facility] 2024-07-01 09:41:46 Felix Pompa is a 49 year old male would like a call back to discuss x ray results please advise [phone] (home) Ami Bell [facility] 2024-06-07 09:55:37 Patient informed [facility] 2024-06-06 15:50:26 First attempt to contact patient, unable to leave voicemail. [facility] 2024-06-06 15:01:28 We will have him start Metformin 500mg 1x daily. The result note says BID, but I changed it to 1x daily for now [facility] 2024-06-06 11:00:00 Images from the original note were not included. Venipuncture collection performed by clean technique on the left anticubitus. Total of 1 attempts were made. Slight pressure and a bandage/dressing were applied to the site(s). The patient experienced no complications. The following specimens were processed according to instructions and sent to [facility] per lab order on 06/06/2024 : LT BLUE SST 1 RED LAV 1 PPT DK GREEN (LiHep) DK GREEN (SodH) WHELAN DK BLUE (K2) DK BLUE (S) ACD Blood Culture NIPT/NTD [facility] 2024-03-18 11:47:23 Spoke to pt, Pt called wrong doctors office. Acacia Quinonez [facility] 2024-03-16 13:06:19 Felix Pompa is a 49 year old male Patient returning call to discuss results. Please contact [phone] (home) Floyd Temple [facility] 2024-03-16 09:46:49 Duplicate encounter. Closing. Will address in open result note encounter. Margy Mas LVN 03/16/2024 9:47 AM T [facility] 2024-03-16 09:09:44 Have pt RTO in a few weeks, then we will start him on preventative meds for gout, I send over tx for now T [facility] 2024-03-15 16:15:00 Images from the original note were not included. Venipuncture collection performed by clean technique on the left anticubitus. Total of 1 attempts were made. Slight pressure and a bandage/dressing were applied to the site(s). The patient experienced no complications. The following specimens were processed according to instructions and sent to [facility] per lab order on 03/15/2024: LT BLUE SST 1 RED LAV 2 PPT DK GREEN (LiHep) DK GREEN (SodH) WHELAN DK BLUE (K2) DK BLUE (S) ACD Blood Culture NIPT/NTD Patient has been identified by and name and was provided with cup, antiseptic towelette, and clean catch instructions. 1 urine specimen(s) sent. Unpreserved 1 Urine Culture Aptima tube Other urine [facility] 2023-11-10 13:00:00 Images from the original note were not included. Venipuncture collection performed by clean technique on the right anticubitus. Total of 1 attempts were made. Slight pressure and a bandage/dressing were applied to the site(s). The patient experienced no complications. The following specimens were processed according to instructions and sent to [facility] per lab order on 11/10/2023: LT BLUE SST 1 RED LAV 2 PPT DK GREEN (LiHep) DK GREEN (SodH) WHELAN DK BLUE (K2) DK BLUE (S) ACD Blood Culture NIPT/NTD Patient has been identified by and name and was provided with cup, antiseptic towelette, and clean catch instructions. 1 urine specimen(s) sent. Unpreserved 1 Urine Culture Aptima tube Other urine RONMENTAL SCIENTIST [facility] 2023-04-20 10:33:05 Formatting of this n ote is different from the original. Images from the original note were not included. Duplicate information. Closing encounter. Will address in open result note encounter. Margy Mas LVN 04/20/2023 10:36 AM CHANDU Lincoln 04/15/2023 5:14 PM CDT Back to Top WBCs low will give hematology referral Margy Mas LVN [facility] 2023-04-15 17:14:47 Formatting of this n ote might be different from the original. Hematology referral placed [facility] 2023-04-13 15:00:00 Formatting of this n ote is different from the original. Images from the original note were not included. Venipuncture collection performed by clean technique on the right anticubitus. Total of 1 attempts were made. Slight pressure and a bandage/dressing were applied to the site(s). The patient experienced no complications. The following specimens were processed according to instructions and sent to [facility] per lab order on 04/13/2023 LT BLUE SST RED LAV 1 PPT DK GREEN (LiHep) DK GREEN (SodH) WHELAN DK BLUE (K2) DK BLUE (S) ACD Blood Culture NIPT/NTD [facility] 2019-03-11 11:59:00 [facility] ([facility]) Post Anesthesia Evaluation REPORT#:[id number] REPORT STATUS: Signed DATE:03/11/19 TIME:1159 PATIENT: FELIX POMPA UNIT #: [id number] ROOM/BED: : 75 AGE: 44 SEX: M ATTEND: Lane Bob MD ADM AUTHOR: Yulia Neely MD * ALL edits or amendments must be made on the electronic/computer document * General Post-op: post surgery rounds Post Anesthesia Evaluation Anes. changes from pre-op eval ORM Surgeries: Surgery Date and Time: 03/11/2019 0800 Primary Procedure: LEFT HYDROCELECTOMY Anesthetic: general LMA Date: 03/11/19 Level of consciousness: patient awake, able to answer questions, participate in this eval. Vital signs: BP: [ 131/85] HR: [66 ] bpm RR: [12 ] / min SP02: [98 ] % Cardiovascular: CV system stable, vital signs stable Respiratory/Airway: respiratory system stable, maintains without support Pain: adequately controlled, pain med. administered Hydration: adequate Temp status: greater than 96.8F, normothermic Presence of N/V: no Anesthesia complications: no Other changes requiring f/u: none Conclusions: no apparent anes. issues, outpts eval prior DC home at 1200 [facility] #: [id number] END OF REPORT [facility] 2019-03-11 09:01:00 [id number] [facility] [address] [place] [address] PATIENT NAME: FELIX POMPA ADMIT DATE: 03/11/19 ACCOUNT NO: [id number] ROOM NO: AGE: 44 REPORT TYPE: OPERATIVE REPORT SEX: M ADMITTING PHYSICIAN: ATTENDING PHYSICIAN: Lane Bob MD OPERATION DATE: 03/11/2019 PROCEDURES: Left hydrocelectomy. PREOPERATIVE DIAGNOSIS: Left hydrocele. POSTOPERATIVE DIAGNOSIS: Left hydrocele. SURGEON: Lane Bob MD. MACHINE TOOL REBUILDER: ANESTHESIA: General. COMPLICATIONS: None. DISPOSITION: To recovery room in a good condition. INDICATION: The patient is a 44-year-old gentleman with a history of a large left hydrocele, who now presents for hydrocelectomy. PROCEDURE IN DETAIL: After risks, benefits, and alternatives were explained and a consent was obtained and placed on the chart, the patient was taken to the operating room and placed supine on the operating table. After general anesthesia was induced, the patient was prepped and draped in a sterile manner, and was given intravenous antibiotics. A 6 cm transverse incision was made in the patient's left hemiscrotum and then carried down to the hydrocele sac using Bovie electrocautery. The hydrocele sac was bluntly dissected and delivered from the scrotum. It was then opened and the hydrocele was full of straw-colored clear fluid. The sac was then excised using the Bovie and passed off the table as a specimen. The edges were then oversewn with the 2-0 chromic suture in a running manner. The sac was then flipped around the back of the testicle and sutured to itself with the 2-0 in a bottleneck fashion. The testicle was then replaced into the scrotum. The cord was anesthetized with 0.25% Marcaine without epinephrine and there was very good hemostasis performed using the Bovie electrocautery. A quarter-inch Vinton drain was placed in through and through manner from the superior portion to the inferior portion of the scrotum. The scrotum was then closed in 3 layers using 2-0, 3-0 and 4-0 chromic, and then reinforced with Dermabond. The drain was sewn to itself in a circular manner with a silk suture. The wound was then reinforced with Dermabond. The patient was awakened in the operating room and taken to recovery room awake, alert, and in a good condition. All needle, instrument, and towel PATIENT NAME: FELIX POMPA counts were correct at the end of the case. The patient tolerated the procedure well with no complications. Dictated By: Lane Bob MD WT: OP:TONY// Conf#: [id number]/DID#: [id number] Authenticated by Lane Bob On 03/25/2019 07:48:42 AM at 0749 PATIENT NAME: FELIX POMPA [facility] 2019-03-11 08:57:00 [facility] ([facility]) Brief Op Note REPORT#:[id number] REPORT STATUS: Signed DATE:03/11/19 TIME:856 PATIENT: FELIX POMPA UNIT #: [id number] ROOM/BED: : 75 AGE: 44 SEX: M ATTEND: Lane Bob MD ADM AUTHOR: Lane Bob MD * ALL edits or amendments must be made on the electronic/computer document * Op/Inv Proc Note - Brief Pre-procedure diagnosis: left hydrocele Post-procedure diagnosis: same as pre procedure dx Procedures performed: left hydrocelectomy Primary Surgeon: manuel [employer] Athletic Director(s): none Findings: left hydrocele Complications: none Estimated blood loss in ml's: minimal Specimens removed/altered: none (hydrocele sac) at 0857 RPT #: [id number] END OF REPORT [facility]
[2025-02-08] MEDS ORDERED: NA CHLORIDE 0.9% 1,000 ML ONE (17:07)
[2025-02-08] MEDS ORDERED: ONDANSETRON 4 MG/2 ML VIAL ONE (17:07)
[2025-02-08 17:10] LABS: Absolute Lymphocytes (CBC) 0.4 K/uL (0.7-4.9); Absolute Monocytes 0.3 K/uL (0.1-1.3); Absolute Neutrophil 4.7 K/uL (1.8-8.0); Basophils % 0.2 % (0-1.3); Eosinophils % 0.6 % (0-4.4); Hematocrit 46.2 % (39.6-49.0); Hemoglobin 15.5 g/dL (13.6-17.9); Lymphocytes % 7.2 % (15.3-44.8); MCH 28.4 pg (27.0-35.0); MCHC 33.5 g/dL (32.0-36.0); MCV 84.9 fL (80-100); Monocytes % 5.2 % (3.3-12.3); Neutrophils % 86.8 % (41.7-73.7); Platelets 230 thou/uL (152-406); RBC Red Blood Cell Count 5.44 M/uL (4.33-5.43); Red Cell Distribution Width 14.4 % (12.1-15.2)
[2025-02-08 17:27] LABS: Albumin/Globulin Ratio 0.9 (1.1-1.8); Anion Gap 7.4 mEq/L (5.0-15.0); Bilirubin Total 0.5 mg/dL (0.2-1.0); Globulin 4.6 g/dL (2.3-3.5); Potassium 3.4 mEq/L (3.5-5.1); Protein, Total 8.6 g/dL (6.4-8.2)
[2025-02-08 17:57] LABS: Blood Morphology Comment NOT SEEN (NOT SEEN); Platelet Estimate ADEQ; White Blood Cell Scan OK (OK)
--- NOTE | 2025-02-08 18:05 | ER ---
Nurse's Notes [facility] Name: Felix Pompa Age: 49 yrs Sex: Male : 1975 Arrival Date: 02/08/2025 Time: 16:17 Bed 10 Private MD: Diagnosis: Gastroenteritis Presentation: 02/08 16:32 Chief complaint: N/D, abdominal cramping, and generalized weakness since last night. hb Coronavirus screen: At this time, the client does not indicate any symptoms associated with coronavirus-19. Ebola Screen: No symptoms or risks identified at this time. Initial Sepsis Screen: Does the patient meet any 2 criteria? No. Patient's initial sepsis screen is negative. Does the patient have a suspected source of infection? No. Patient's initial sepsis screen is negative. Risk Assessment: Do you want to hurt yourself or someone else? Patient reports no desire to harm self or others. Onset of symptoms was February 08, 2025. 16:32 Method Of Arrival: Ambulatory 16:32 Acuity: CHRISTOPHER 3 hb Historical: - Allergies: 16:33 uknown medication; hb - PMHx: 16:33 Hypertension; hb - Immunization history:: Adult Immunizations up to date. - Infectious Disease History:: Denies. - Social history:: Smoking status: Patient denies any tobacco usage or history of. - Family history:: not pertinent. Assessment: 17:30 General: Appears in no apparent distress. Behavior is calm, cooperative, appropriate ll1 for age. Pain: Denies pain. GI: Abdomen is flat, Reports cramping, diarrhea, nausea. 18:17 Reassessment: Patient appears in no apparent distress at this time. Patient and/or hb family updated on plan of care and expected duration. Pain level reassessed. Patient is alert, oriented x 3, equal unlabored respirations, skin warm/dry/pink. Vital Signs: 16:32 BP 129 / 87; Pulse 91; Resp 16; Temp 97.8; Pulse Ox 100% on R/A; Weight 74.84 kg; hb Height 5 ft. 5 in. ; Pain 1/10; 16:32 Body Mass Index 27.46 (74.84 kg, 165.1 cm) hb 16:32 Pain Scale: Adult hb ED Course: 16:21 Patient arrived in ED. al6 16:22 [place], Kg, MD is Attending Physician. rt 16:33 Triage completed. hb 16:34 Arm band placed on right wrist. hb 17:06 Lipase Sent. bc6 17:06 CMP Sent. bc6 17:06 CBC with Diff Sent. bc6 17:06 Initial lab(s) drawn, by me, sent to lab. Inserted saline lock: 20 gauge in right 6 antecubital area, using aseptic technique. Blood collected. Flushed with 10 mL NS. 17:15 Patient has correct armband on for positive identification. Provided Education on: ER ll1 procedures and process. Warm blanket given. 18:16 No provider procedures requiring assistance completed. IV discontinued, intact, hb bleeding controlled, No redness/swelling at site. Pressure dressing applied. Administered Medications: 17:10 Drug: Ondansetron IVP 4 mg IVP once; over 2 minutes Route: IVP; Site: right antecubital;ll1 17:10 Drug: NS 0.9% IV 1000 ml IV at 1000 ml once; to be given as a bolus over 60 minutes ll1 Route: IV; Rate: 1000 ml; Site: right antecubital; Outcome: 18:05 Discharge ordered by . rt 18:16 Discharged to home ambulatory, hb 18:16 Condition: stable 18:16 Discharge instructions given to patient, Instructed on discharge instructions, follow up and referral plans. medication usage, Demonstrated understanding of instructions, follow-up care, medications, Prescriptions given X 1, 18:17 Patient left the ED. hb Signatures: Madeleine Garcia RN RN hb Lewis, Lynsay, RN RN 1 Kg García MD MD rt Danita Mac [facility] Araceli Jacobs [facility]
--- NOTE | 2025-02-08 18:06 | EDPHYS ---
Physician Documentation [facility] Name: Felix Pompa Age: 49 yrs Sex: Male : 1975 Arrival Date: 02/08/2025 Time: 16:17 Bed 10 Private MD: ED Physician Kg García HPI: 02/08 17:50 This 49 yrs old Black Male presents to ER via Ambulatory with complaints of rt Vomiting/Diarrhea. 17:50 Patient presents to the ED with vomiting and diarrhea all day today. States that he has rt not been able to keep any liquids down by mouth, states that he feels mildly weak. Reports some mild abdominal cramping but no overt abdominal pain. Patient states that he had a [employer] buff[employer] as well as [employer] last night. Denies other acute complaints at this time, symptoms are moderate in severity, no other aggravating or alleviating factors. Denies hematemesis, hematochezia, melena. Historical: - Allergies: 16:33 uknown medication; hb - PMHx: 16:33 Hypertension; hb - Immunization history:: Adult Immunizations up to date. - Infectious Disease History:: Denies. - Social history:: Smoking status: Patient denies any tobacco usage or history of. - Family history:: not pertinent. ROS: 17:50 Constitutional: Negative for fever, chills, and weight loss, Cardiovascular: Negative rt for chest pain, palpitations, and edema, Respiratory: Negative for shortness of breath, cough, wheezing, and pleuritic chest pain, MS/Extremity: Negative for injury and deformity, Skin: Negative for injury, rash, and discoloration, Neuro: Negative for headache, weakness, numbness, tingling, and seizure, 17:50 Abdomen/GI: Positive for vomiting, diarrhea, Exam: 17:50 Constitutional: This is a well developed, well nourished patient who is awake, alert, rt and in no acute distress. Chest/axilla: Normal chest wall appearance and motion. Nontender with no deformity. No lesions are appreciated. Cardiovascular: Regular rate and rhythm with a normal S1 and S2. No gallops, murmurs, or rubs. Normal PMI, no JVD. No pulse deficits. Respiratory: Lungs have equal breath sounds bilaterally, clear to auscultation and percussion. No rales, rhonchi or wheezes noted. No increased work of breathing, no retractions or nasal flaring. Abdomen/GI: Soft, non-tender, with normal bowel sounds. No distension or tympany. No guarding or rebound. No evidence of tenderness throughout. Skin: Warm, dry with normal turgor. Normal color with no rashes, no lesions, and no evidence of cellulitis. MS/ Extremity: Pulses equal, no cyanosis. Neurovascular intact. Full, normal range of motion. Neuro: Awake and alert, GCS 15, oriented to person, place, time, and situation. Cranial nerves II-XII grossly intact. Motor strength 5/5 in all extremities. Sensory grossly intact. Cerebellar exam normal. Normal gait. Vital Signs: 16:32 BP 129 / 87; Pulse 91; Resp 16; Temp 97.8; Pulse Ox 100% on R/A; Weight 74.84 kg; hb Height 5 ft. 5 in. ; Pain 1/10; 16:32 Body Mass Index 27.46 (74.84 kg, 165.1 cm) hb 16:32 Pain Scale: Adult hb MDM: 16:35 Medical Screening Exam initiated rt 18:06 Differential diagnosis: Gastroenteritis, electrolyte disturbance, dehydration. Data rt reviewed: vital signs, nurses notes, lab test result(s). I considered the following discharge prescriptions or medication management in the emergency department Medications were administered in the Emergency Department. See MAR. Test considered but Not performed: CT: Symptoms most consistent with a gastroenteritis, he has no focal areas of abdominal tenderness, reassuring labs. Symptoms are improving with antiemetics, IV fluids. At this time, I have a low suspicion for acute surgical pathology, believe that he is stable for outpatient care, return precautions for worsening symptoms were discussed with the patient.. Care significantly affected by the following chronic conditions: Hypertension. Counseling: I had a detailed discussion with the patient and/or guardian regarding the historical points, exam findings, and any diagnostic results supporting the discharge/admit diagnosis, lab results, the need for outpatient follow up, to return to the emergency department if symptoms worsen or persist or if there are any questions or concerns that arise at home. Response to treatment: the patient's symptoms have markedly improved after treatment. 02/08 16:40 Order name: CBC with Diff; Complete Time: 17:58 rt 02/08 16:40 Order name: CMP; Complete Time: 17:58 rt 02/08 16:40 Order name: Lipase; Complete Time: 17:58 rt 02/08 17:20 Order name: CBC Smear Scan; Complete Time: 17:58 EDMS Administered Medications: 17:10 Drug: Ondansetron IVP 4 mg IVP once; over 2 minutes Route: IVP; Site: right antecubital;ll1 17:10 Drug: NS 0.9% IV 1000 ml IV at 1000 ml once; to be given as a bolus over 60 minutes ll1 Route: IV; Rate: 1000 ml; Site: right antecubital; Disposition Summary: 02/08/25 18:05 Discharge Ordered Notes: Location: Home rt Problem: new rt Symptoms: have improved rt Condition: Stable rt Diagnosis - Gastroenteritis rt Followup: rt - With: Private Physician - When: 2 - 3 days - Reason: Followup: rt - With: Emergency Department - When: As needed - Reason: Worsening of condition Discharge Instructions: - Discharge Summary Sheet ll1 - Viral Gastroenteritis, Adult rt Forms: - Work release form ll1 - Medication Reconciliation Form rt - Antibiotic Education rt - Prescription Opioid Use rt - Patient Portal Instructions rt - Leadership Thank You Letter rt Prescriptions: - ondansetron 4 mg Oral Tablet,disintegrating - take 1 tablet ORAL route every 6 hours as needed for nausea and vomiting; 15 rt tablet; Refills: 0, Product Selection Permitted Signatures: Dispatcher [employer] EDMS Madeleine Garcia, RN ALICE Patrice Gunter RN RN 1 Kg García MD MD rt
[2025-02-08 18:34] VITALS: BP 129/87; TEMP 97.8; O2SAT 100
== END 2025-02-08 18:17 | disposition home or self-care (01) ==
LOC: ER 16:17
DX: K52.9 Noninfective gastroenteritis and colitis, unspecified (principal)
CPT/HCPCS: 85025; 36415; 83690; 80053; J2405; J7030